=== PATIENT | male | born 2000 | race Two or more races ===

== ENCOUNTER 2022-08-04 03:57 | Emergency (ER) | payer OTHER, MEDICAID, SELFPAY ==
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
[2022-08-04 04:06] VITALS: BP 144/71; PULSE 80; RESP 18; TEMP 36.6; O2SAT 95; BMI 31.2
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
== END 2022-08-04 06:15 | disposition home or self-care (01) ==
PROVIDERS: Emergency Provider Internal Medicine
DX: S00.83XA Contusion of other part of head, initial encounter (principal); R51.9 Headache, unspecified; X58.XXXA Exposure to other specified factors, initial encounter; Y93.9 Activity, unspecified; Y92.9 Unspecified place or not applicable; Y99.9 Unspecified external cause status
CPT/HCPCS: 70486; 99283; 99284

== ENCOUNTER 2023-12-10 13:07 | Emergency (ER) | payer OTHER, SELFPAY ==
--- NOTE | ~2023-12-10 | US_ITS ---
EXAMINATION: US ABDOMEN LIMITED CLINICAL INFORMATION: Periumbilical pain. COMPARISON: None available. TECHNIQUE: Limited imaging of the periumbilical region. FINDINGS: Targeted sonography of the periumbilical region was performed. There is no evidence of focal protrusion of intra-abdominal contents to suggest hernia. There is no focal fluid collection or other sonographic abnormality. US/US abdomen limited IMPRESSION: Unremarkable examination. The decision to follow the area of concern should be based on the clinical assessment. If clinically indicated further cross-sectional imaging could be performed. Electronically signed by: George Lockhart MD 12/10/2023 03:39 PM EDT
--- NOTE | ~2023-12-10 | CT_ITS ---
EXAMINATION: CT ABDOMEN AND PELVIS WITH CONTRAST CLINICAL INFORMATION: Periumbilical pain and discharge COMPARISON: None available. TECHNIQUE: Multidetector volumetric images were obtained from the superior aspect of the liver through the pubic symphysis following administration 85 mL of Omnipaque 350 intravenous contrast. Sagittal and coronal reformatted images were obtained on the technologist's workstation. Oral contrast: No This CT examination was performed using dose optimization techniques as appropriate, variously including the following: *Automated exposure control *Adjustment of mA and/or kV according to patient size (this includes techniques or standardized protocols for targeted exams where dose is matched to indication/reason for exam; i.e. extremities or head) *Use of iterative reconstruction technique DLP: 459 mGy-cm FINDINGS: LUNG BASES: The visualized lung bases are unremarkable. LIVER, GALLBLADDER, AND BILIARY TREE: The liver is normal in size, shape, and attenuation. No focal hepatic lesion or biliary ductal dilatation is present. The gallbladder is unremarkable with no evidence of radiopaque gallstones, gallbladder wall thickening, or obvious pericholecystic inflammatory changes. PANCREAS: Unremarkable. SPLEEN: Unremarkable. ADRENAL GLANDS: Unremarkable. KIDNEYS AND URETERS: The kidneys are normal in size, shape, and attenuation. No hydronephrosis, hydroureter, or calculi seen. No perinephric stranding. BLADDER: Unremarkable. GASTROINTESTINAL TRACT: The small and large bowel are unremarkable. The appendix is unremarkable. ABDOMINAL WALL: Soft tissue stranding the umbilicus. No discrete fluid collections. LYMPH NODES: Normal. VASCULAR: Unremarkable. PELVIC VISCERA: Unremarkable. OSSEOUS STRUCTURES: Unremarkable. CT/CT abdomen pelvis w IV con IMPRESSION: Soft tissue stranding at the umbilicus. No discrete fluid collections. Fleischner guidelines were followed. Electronically signed by: Maday Kang MD 12/10/2023 07:05 PM EDT
[2023-12-10 13:17] VITALS: BP 126/70; PULSE 80; RESP 18; TEMP 37; O2SAT 98; BMI 30.5
--- NOTE | 2023-12-10 13:21 | ED.ABDPAIN ---
HPI - Abdominal Pain General Chief Complaint: Abdominal Pain Stated Complaint: belly button hernia leaking fluid Time Seen by Provider: 12/10/23 16:20 Source: patient Limitations: no limitations History of Present Illness ED Provider: Perla Garnica PA-C HPI narrative: 23-year-old male presents with a umbilical discharge x2 days. Associated discomfort. Denied swelling of periumbilical region, nausea, vomiting, abdominal distention, constipation or inability to pass flatus. No fevers. No trauma to the area. Related Data Previous Rx's ?Medication ?Instructions ?Recorded cephalexin 500 mg capsule 500 mg PO QID #28 caps 12/10/23 Allergies Allergy/AdvReac Type Severity Reaction Status Date / Time No Known Allergies Allergy Verified 12/10/23 13:20 Review of Systems Review of Systems Yes all other systems are reviewed and are negative Constitutional: Denies fatigue and Denies fever(s) Gastrointestinal: Reports abdominal pain, Denies bloating, Denies constipation, Denies diarrhea, Denies nausea and Denies vomiting Endocrine: Denies fatigue PMFSH Past Medical History Attestation statement: The following information was validated with the patient. Social History Social History Alcohol intake: current Alcohol intake frequency: holidays/special occasions only Alcohol type: hard liquor Substance Use Type: Marijuana Advance Directives: No Advance Directives Information Provided: Yes Do you have a plan to hurt others: No Plan Physical Exam ED Vital Signs: Vital Signs - 24 hr 12/10/23 13:17 12/10/23 16:34 12/10/23 19:02 Temperature 98.6 F 98.6 F 98.0 F Pulse Rate 80 57 57 Respiratory Rate 18 22 H 16 Blood Pressure 126/70 117/65 134/72 Pulse Oximetry 98 99 98 Oxygen Delivery Method Room Air Room Air Room Air BMI result Body Mass Index 30.5 Const Other: Alert, overall well-appearing Orientation/consciousness: patient oriented x3 Resp Other: Nonlabored respirations Cardio Other: Normal peripheral perfusion GI Other: Abdomen is soft, nondistended, nontender, no evidence of umbilical hernia on exam, no overlying skin changes, some debris/discharge noted from the umbilicus, the interior folds appear slightly erythematous, Skin Other: Warm dry no rash Neuro General: patient oriented x3, no focal motor deficits and CN's II-XI intact bilaterally Psych Other: Calm cooperative Course Course Course Narrative: This is a Rapid Medical Examination (RME) performed by Raquel Leiva PA-C in triage. Full HPI, ROS, assessment and treatment plan per primary provider in the Main ED. 23 yo male here for eval of ?umbilical hernia. Was seen for this at urgent care last night. They were not able to reduce it but said it was soft. Sent home with strict return precautions. States he woke up this morning in the area was draining pus . Endorses pain with pushing on the area. + no visible hernia on exam. When I palpate the umbilicus, I feel a mass. There is purulent drainage from the umbilicus. Plan: Basic labs, abd ultrasound to assess hernia versus abscess, +will defer further imaging to primary ED provider. Medical Decision Making Medical Decision Making [facility] Narrative: 23-year-old male presents with a umbilical discharge x2 days. Associated discomfort. Denied swelling of periumbilical region, nausea, vomiting, abdominal distention, constipation or inability to pass flatus. No fevers. No trauma to the area. No relevant chronic issues History: Per patient I have considered the following differential diagnoses: Bowel obstruction, strangulated/incarcerated hernia, fungal infection, cellulitis, purulent cellulitis Plan: Patient here with a very unremarkable exam, there was no evidence of bowel obstruction per my exam, and he has no obstructive symptoms. Screening labs were obtained including a limited abdominal ultrasound, everything thus far unremarkable. He likely has some sort of dermatitis, to err on the side of caution obtaining a CT scan I have independently reviewed the following tests: Labs: No leukocytosis, not anemic, no electrolyte abnormality Limited abdominal ultrasound: US/US abdomen limited IMPRESSION: Unremarkable examination. The decision to follow the area of concern should be based on the clinical assessment. If clinically indicated further cross-sectional imaging could be performed. Electronically signed by: George Lockhart MD 12/10/2023 03:[address] abdomen and pelvis: CT/CT abdomen pelvis w IV con IMPRESSION: Soft tissue stranding at the umbilicus. No discrete fluid collections. Fleischner guidelines were followed. Electronically signed by: Maday Kang MD 12/10/2023 07:05 PM EDT RP Sounds as if the patient is developing early cellulitis, given the region of inflammation, he could have overlying fungal infection that broke the skin, we will treat with Keflex and he can use topical antifungal you can follow up with primary care as needed Lab Data 12/10/23 13:27 12/10/23 13:27 Labs: Lab Results 12/10/23 Range/Units 13:27 WBC 5.1 (4.8-10.8) X10*3/uL RBC 4.66 (4.60-5.80) X10*6/uL Hgb 13.9 L (14.0-18.0) g/dl Hct 41.0 L (42.0-52.0) % MCV 88.0 (80.0-98.0) fL MCH 29.8 (27.0-33.0) pg MCHC 33.9 (31.0-36.0) g/dl RDW 12.5 (11.0-16.0) % Plt Count 212 (160-400) X10*3/uL MPV 10.3 (9.4-12.4) fL Immature Gran % (Auto) 0.2 (0.0-0.4) % Neut % (Auto) 53.9 (45-73) % Lymph % (Auto) 34.2 (20-40) % Camp % (Auto) 7.1 (2-11) % Eos % (Auto) 4.0 (0-4) % Baso % (Auto) 0.6 (0-2) % Lymph # (Auto) 1.7 (1.2-4.9) X10*3/uL Camp # (Auto) 0.4 (0.1-1.2) X10*3/uL Eos # (Auto) 0.2 (0.0-0.4) X10*3/uL Baso # (Auto) 0.0 (0.0-0.2) X10*3/uL Abs Immat Gran (auto) 0.01 (0.00-0.03) X10*3/uL Absolute Neuts (auto) 2.7 (2.0-8.3) x10*3/uL Absolute Nucleated RBC 0.000 (0.0-0.012) X10*3/uL Nucleated RBC % (auto) 0.0 (0.0-0.2) /100WBC Sodium 142 (135-145) mmol/L Potassium 4.1 (3.3-5.1) mmol/L Chloride 107 (96-108) mmol/L Carbon Dioxide 26 (22-29) mmol/L Anion Gap 13 (12-20) BUN 18 H (9-16) mg/dL Creatinine 1.12 (0.5-1.4) mg/dL Estim Creat Clear Calc 110.7 Estimated GFR > 60 Random Glucose 121 H (60-115) mg/dL Calcium 9.3 (8.4-10.2) mg/dL Magnesium 2.1 (1.6-2.6) mg/dL Total Bilirubin 0.2 (0.0-1.0) mg/dL AST 27 (5-37) U/L ALT 32 (0-40) U/L Alkaline Phosphatase 65 (39-117) U/L Total Protein 7.2 (6.5-8.0) g/dL Albumin 4.6 (3.5-5.0) g/dL Lipase 67 (8-78) U/L Medications Administered Discontinued Medications Generic Name Dose Route Start Last Admin Trade Name Freq PRN Reason Stop Dose Admin Iohexol 100 ml 12/10/23 18:26 12/10/23 18:27 Iohexol 350 Mg/Ml 100 Ml Infus..Btl IV 12/10/23 18:27 85 ml ONCE ONE Administration Discharge Plan Discharge Clinical Impression: Cellulitis Patient Disposition: Home, Self-Care Instructions: Cellulitis (ED) Additional Instructions: The CT scan revealed that you have inflammation within the belly button, likely secondary to an overlying fungal infection. Use the Keflex as directed. Use the topical antifungal cream, per package instructions. Follow up with your primary care provider as needed. To note, there was no evidence of a hernia Prescriptions: New cephalexin 500 mg capsule 500 mg PO QID Qty: 28 0RF Print Language: Ukrainian
[2023-12-10 13:31] LABS: MANUAL DIFF FLAG NO
[2023-12-10 13:35] LABS: Basophils Percent Auto 0.6 % (0-2); Eosinophils Absolute Auto 0.2 X10*3/uL (0.0-0.4); Hemoglobin 13.9 g/dl (14.0-18.0); Imm Gran Abs Auto 0.01 X10*3/uL (0.00-0.03); Imm Gran Pct Auto 0.2 % (0.0-0.4); Lymphocytes Absolute Auto 1.7 X10*3/uL (1.2-4.9); Lymphocytes Percent Auto 34.2 % (20-40); Mean Corpuscular HGB Conc 33.9 g/dl (31.0-36.0); Mean Corpuscular Hemoglobin 29.8 pg (27.0-33.0); Mean Platelet Volume 10.3 fL (9.4-12.4); Monocytes Absolute Auto 0.4 X10*3/uL (0.1-1.2); Monocytes Percent Auto 7.1 % (2-11); Neutrophils Absolute Auto 2.7 x10*3/uL (2.0-8.3); Neutrophils Percent Auto 53.9 % (45-73); Platelet Count 212 X10*3/uL (160-400); Red Blood Count 4.66 X10*6/uL (4.60-5.80); Red Cell Distribution Width 12.5 % (11.0-16.0); White Blood Count 5.1 X10*3/uL (4.8-10.8)
[2023-12-10 14:01] LABS: Alanine Aminotransferase 32 U/L (0-40); Albumin Level 4.6 g/dL (3.5-5.0); Alkaline Phosphatase 65 U/L (39-117); Anion Gap 13 (12-20); Aspartate Amino Transferase 27 U/L (5-37); Bilirubin Total 0.2 mg/dL (0.0-1.0); Blood Urea Nitrogen 18 mg/dL (9-16); Calcium 9.3 mg/dL (8.4-10.2); Carbon Dioxide 26 mmol/L (22-29); Chloride 107 mmol/L (96-108); Creatinine Clr Calc Pharmacy 110.7; Estimated Glomerular Filt Rate > 60; Glucose Random 121 mg/dL (60-115); Lipase 67 U/L (8-78); Magnesium 2.1 mg/dL (1.6-2.6); Potassium 4.1 mmol/L (3.3-5.1); Sodium 142 mmol/L (135-145); Total Protein 7.2 g/dL (6.5-8.0)
[2023-12-10 16:34] VITALS: BP 117/65; PULSE 57; RESP 22; TEMP 37; O2SAT 99
[2023-12-10] MEDS: iohexoL 350 MG/ML 100 ML INFUS..BTL IV (18:27)
[2023-12-10 19:02] VITALS: BP 134/72; PULSE 57; RESP 16; TEMP 36.7; O2SAT 98
[2023-12-10 19:34] VITALS: BP 134/72; PULSE 57; RESP 16; TEMP 36.7; O2SAT 98
[2023-12-10] MEDS: cephALEXin 500 MG CAPSULE PO (19:34)
== END 2023-12-10 19:35 | disposition home or self-care (01) ==
PROVIDERS: Physician Assistant Medical; Emergency Provider Emergency Medicine
DX: L03.316 Cellulitis of umbilicus (principal); R10.33 Periumbilical pain; R10.2 Pelvic and perineal pain; Z79.899 Other long term (current) drug therapy
CPT/HCPCS: 36415; 74177; 76705; 80053; 83690; 83735; 85025; 99283; 99284; Q9967

== ENCOUNTER 2024-10-18 10:33 | Emergency (ER) | payer OTHER, SELFPAY ==
--- NOTE | ~2024-10-18 | CT_ITS ---
EXAMINATION: CT ABDOMEN PELVIS WITHOUT IV CONTRAST HISTORY: flank pain, concern for stone COMPARISON: Comparison is made with the prior examination dated 12/10/2023. TECHNIQUE: CT scan of the abdomen and pelvis was performed without contrast using standard departmental protocol. Coronal and sagittal reformatted images were generated and reviewed. Oral contrast material was not administered per department protocol. This CT exam was performed with one or more of the following dose reduction techniques: automated exposure control, adjustment of the mA and/or kV according to patient size, use of iterative reconstruction technique. DLP: 471 mGy-cm FINDINGS: LOWER CHEST: The visualized lung bases are clear. There is no pleural effusion. CARDIOVASCULATURE: The heart is normal in size. There is no pericardial effusion. LIVER: The liver is normal in size and contour. The liver has an unremarkable unenhanced appearance. GALLBLADDER / BILE DUCTS: The gallbladder is unremarkable. There is no intra or extrahepatic biliary ductal dilatation. SPLEEN: The spleen is normal in size and has an unremarkable unenhanced appearance. PANCREAS: The pancreas has an unremarkable unenhanced appearance. ADRENAL GLANDS: Unremarkable. 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 No renal or ureteral calculi are identified. There is no hydronephrosis or hydroureter. LYMPH NODES: No retroperitoneal lymphadenopathy is identified in the abdomen or pelvis. VASCULATURE: The abdominal aorta is normal in caliber. MESENTERY/PERITONEUM: No free fluid. No masses. There is no free intraperitoneal gas. STOMACH: The stomach is collapsed, limiting evaluation. SMALL BOWEL: The small bowel is normal in caliber. COLON: There is a moderate to large amount of stool throughout the colon. APPENDIX: Normal. URINARY BLADDER/PELVIC ORGANS: The urinary bladder is unremarkable. The prostate is normal in size. BONES / SOFT TISSUES: No suspicious bony or soft tissue abnormalities. CT/CT abdomen pelvis wo IV con IMPRESSION: 1. No evidence of nephrolithiasis or ureteral obstruction. 2. Moderate to large amount of stool throughout the colon. Electronically signed by: Denny Mathur MD 10/18/2024 02:59 PM EDT
[2024-10-18 10:52] VITALS: BP 128/81; PULSE 57; RESP 18; TEMP 36.6; O2SAT 100; BMI 25.8
--- NOTE | 2024-10-18 10:55 | ED_ITS ---
HPI - General Adult General Chief complaint: Back Pain/Injury Stated complaint: ref by UC, flank pain Time Seen by Provider: 10/18/24 12:46 Source: patient Mode of arrival: ambulatory Limitations: no limitations History of Present Illness ED Provider: Xin Sanchez PA-C HPI narrative: Patient is a 24 year old assigned male at with no significant medical history presenting to the emergency department with bilateral back pain and urinary symptoms. Patient states that the back pain has been ongoing for 2 weeks and progressively worsening. Patient reports that they were evaluated by urgent care this morning and referred to the emergency department to rule out a kidney infection. They report episodes of cold sweats, nausea, increased urinary frequency, and feelings of incomplete urinary emptying. Patient reports the pain has become bothersome and interfered with their sleep this week. Patient states that they have felt constipated over the past week. Patient reports taking Azo at home with mild relief of urinary symptoms. Patient denies any fevers, blood in their urine, pain with urination, diarrhea, blood in their stool, or any other symptoms at this time. Onset (ago): week(s) (2 weeks) Related Data Previous Rx's ?Medication ?Instructions ?Recorded cephalexin 500 mg capsule 500 mg PO QID #28 caps 12/09 Allergies Allergy/AdvReac Type Severity Reaction Status Date / Time No Known Allergies Allergy Verified 10/18/24 10:55 Review of Systems 2 Constitutional: Constitutional: Reports as per HPI Eyes: Eyes: Reports as per HPI ENT: Reports as per HPI Cardiovascular: Cardiovascular: Reports as per HPI Respiratory: Respiratory: Reports as per HPI Gastrointestinal: Gastrointestinal: Reports as per HPI Genitourinary: Genitourinary: Reports as per HPI Musculoskeletal: Musculoskeletal: Reports as per HPI Integumentary/Breasts: Skin/Breast: Reports as per HPI Neurologic: Reports as per HPI Psychiatric: Psychiatric: Reports as per HPI Endocrine: Endocrine: Reports as per HPI Hematologic/Lymphatic: Hematologic/Lymphatic: Reports as per HPI Allergic/Immunologic: Allergic/Immunologic: Reports as per HPI PMF Past Medical History Attestation statement: The following information was validated with the patient. Source: old records reviewed and nursing notes reviewed Social History Social History Alcohol intake: current Alcohol intake frequency: holidays/special occasions only Alcohol type: hard liquor Smoked in Last 30 Days: No Substance Use Type: Marijuana Advance Directives: No Advance Directives Information Provided: Yes Do you have a plan to hurt others: No Plan Physical Exam ED Vital Signs: Vital Signs - 24 hr 10/18/24 10:52 10/18/24 13:08 10/18/24 14:00 Temperature 97.9 F Pulse Rate 57 55 49 L Respiratory Rate 18 16 18 Blood Pressure 128/81 118/70 116/72 Pulse Oximetry 100 100 99 Oxygen Delivery Method Room Air Room Air Room Air 10/18/24 15:58 Temperature 98.4 F Pulse Rate 56 Respiratory Rate 16 Blood Pressure 110/64 Pulse Oximetry 99 Oxygen Delivery Method Room Air BMI result Body Mass Index 25.8 Const General: cooperative, no acute distress, alert and awake Nutritional Appearance: well nourished Orientation/consciousness: patient oriented x3 HENMT Head: Yes normal to inspection and Yes atraumatic Ears: hearing grossly normal bilaterally and external ears normal General nose exam: Normal external nose present, no nasal discharge noted and no epistaxis Face and sinus: Yes normal facial exam, No abrasion and No laceration Mouth: Normal oral and palatal mucosa present, no drooling and no muffled voice Eyes General: appearance normal, both eyes and all related structures Periorbital: periorbital findings normal Eyelids: Yes eyelids normal Conjunctivae: conjunctivae normal Pupils: Equal, round and reactive pupils present EOM: EOMs intact bilaterally Neck Neck: Yes normal visual inspection and Yes full ROM Resp Effort & Inspection: normal respiratory effort and able to speak in complete sentences Cardio Rate: regular rate Rhythm: regular rhythm GI Inspection: Yes normal to inspection and No distended Palpation (GI): Soft to palpation and Tenderness to palpation present (GI) (mildly tender to LLQ) Percussion: Yes normal to percussion Auscultation: normal bowel sounds General: Yes CVA tenderness (left) Back/Spine/Pelvis Back: CVA tenderness (left) Neuro General: patient oriented x3, moves all extremities and CN's II-XI intact bilaterally Cranial nerves: Yes Equal, round and reactive pupils present Cognition (Neuro): normal cognition Extrem General: Yes normal to inspection, Yes full ROM and Yes capillary refill normal Psych Appearance: grossly normal Mental Status: mental status grossly normal Affect: normal affect Attitude: cooperative Thought process: Normal thought process present Thought content: Normal thought content present Insight: Good insight present (Psych) Course Course Course Narrative: This is a Rapid Medical Examination (RME) performed by Raquel Leiva PA-C in triage. Full HPI, ROS, assessment and treatment plan per primary provider in the Main ED. Hx: 24 yo M here from for eval of b/l flank pain, an episode of chills, and difficulty urinating x2 weeks. noted to have CVAT at with infected urine, sent here for pyelo r/o. no documented fevers. PE/vitals: +CVAT bilaterally Plan: screening labs, UA - will defer imaging to primary provider. Medications Administered Discontinued Medications Generic Name Dose Route Start Last Admin Trade Name Freq PRN Reason Stop Dose Admin Sodium Chloride 1,000 mls @ 999 mls/hr 10/18/24 13:30 10/18/24 15:02 Ns IV 10/18/24 14:30 Infused .Q1H1M L[facility]YD Infusion Ketorolac Tromethamine 15 mg 10/18/24 13:26 10/18/24 13:34 Ketorolac Tromethamine 15 Mg/Ml Vial IVPUSH 10/18/24 13:27 15 mg ONCE ONE Administration Medical Decision Making Medical Decision Making [facility] Narrative: Patient is a 24 year old assigned male at with no significant medical history presenting to the emergency department with bilateral back pain and urinary symptoms. Patient's physical exam was unremarkable. Patient's blood work was unremarkable. Patient's urine showed no acute process. Patient's CT abd/pelvis showed a significant amount of stool. Patient's clinical presentation is most consistent with intermittent urinary issues secondary to constipation. I explained my physical exam findings as well as all test results to the patient. I answered all questions asked by the patient. I stressed the importance of the patient taking his medication as directed (either prescribed or as the over the counter packaging recommends). I stressed the importance of the patient following up with his primary care provider. I stressed the importance of the patient returning to the emergency department immediately if his symptoms were to worsen or if he were to develop any dizziness, shortness of breath, difficulty breathing, chest pain, blurry vision, loss of vision, nausea, vomiting, abdominal pain, fever, chills, back pain, or any other complaints. Patient verbalized agreement and understanding with this treatment plan and discharge. Differential Diagnosis Differential Diagnoses: The differential diagnosis associated with the presentation includes Constipation Abdominal pain Urinary issues UTI Admission/Observation Consideration of admission/observation: Escalation of care including admission/observation considered Patient would have been admitted to the hospital had his work up had any findings where hospital admission was appropriate and his clinical presentation warranted hospital admission. Lab Data [facility] Lab Attestation statement: I reviewed the patient's lab results. My interpretation of these results are in the [facility] Rationale portion of this note. 10/18/24 11:01 10/18/24 11:01 Labs: Lab Results 10/18/24 10/18/24 Range/Units 11: 13:10 WBC 5.2 (4.8-10.8) X10*3/uL RBC 4.84 (4.60-5.80) X10*6/uL Hgb 14.6 (14.0-18.0) g/dl Hct 41.7 L (42.0-52.0) % MCV 86.2 (80.0-98.0) fL MCH 30.2 (27.0-33.0) pg MCHC 35.0 (31.0-36.0) g/dl RDW 12.5 (11.0-16.0) % Plt Count 198 (160-400) X10*3/uL MPV 10.3 (9.4-12.4) fL Immature Gran % (Auto) 0.2 (0.0-0.4) % Neut % (Auto) 42.2 L (45-73) % Lymph % (Auto) 39.0 (20-40) % Pope % (Auto) 8.8 (2-11) % Eos % (Auto) 9.2 H (0-4) % Baso % (Auto) 0.6 (0-2) % Lymph # (Auto) 2.0 (1.2-4.9) X10*3/uL Pope # (Auto) 0.5 (0.1-1.2) X10*3/uL Eos # (Auto) 0.5 H (0.0-0.4) X10*3/uL Baso # (Auto) 0.0 (0.0-0.2) X10*3/uL Abs Immat Gran (auto) 0.01 (0.00-0.03) X10*3/uL Absolute Neuts (auto) 2.2 (2.0-8.3) x10*3/uL Absolute Nucleated RBC 0.000 (0.0-0.012) X10*3/uL Nucleated RBC % (auto) 0.0 (0.0-0.2) /100WBC Sodium 140 (135-145) mmol/L Potassium 3.9 (3.3-5.1) mmol/L Chloride 105 (96-108) mmol/L Carbon Dioxide 26 (22-29) mmol/L Anion Gap 13 (12-20) BUN 13 (9-16) mg/dL Creatinine 1.04 (0.5-1.4) mg/dL Estim Creat Clear Calc 111.4 Estimated GFR > 60 Random Glucose 101 (60-115) mg/dL Calcium 9.3 (8.4-10.2) mg/dL Magnesium 2.1 (1.6-2.6) mg/dL Total Bilirubin 0.5 (0.0-1.0) mg/dL AST 27 (5-37) U/L ALT 28 (0-40) U/L Alkaline Phosphatase 57 (39-117) U/L Total Protein 7.1 (6.5-8.0) g/dL Albumin 4.8 (3.5-5.0) g/dL Urine Color Dark Yellow Urine Appearance Clear Urine pH 6.5 (5.0-9.0) Ur Specific [place] <= 1.005 (1.005-1.025) Urine Protein Negative (Neg-Trace) mg/dL Urine Glucose (UA) Negative (Negative) mg/dL Urine Ketones Negative (Negative) mg/dL Urine Blood Negative (Negative) Urine Nitrite Positive H (Negative) Ur Leukocyte Esterase Negative (Negative) Urine RBC 0-2 (0-2) /HPF Urine WBC 0-5 (0-5) /HPF Ur Squamous Epith Cells 0-2 (0-2) /HPF Urine Bacteria None Seen (None Seen) Hyaline Casts 0-2 (0-2) /LPF Independent Interpretation I performed an independent interpretation of an: CT Scan Interpretation: My interpretation is in agreement with the radiologist's impression of this imaging study. L Report Number: [id number]: Total DLP = 471.00 mGy-cm Reason for Exam: flank pain, concern for stone EXAMINATION: CT ABDOMEN PELVIS WITHOUT IV CONTRAST HISTORY: flank pain, concern for stone COMPARISON: Comparison is made with the prior examination dated 12/10/2023. TECHNIQUE: CT scan of the abdomen and pelvis was performed without contrast using standard departmental protocol. Coronal and sagittal reformatted images were generated and reviewed. Oral contrast material was not administered per department protocol. This CT exam was performed with one or more of the following dose reduction techniques: automated exposure control, adjustment of the mA and/or kV according to patient size, use of iterative reconstruction technique. DLP: 471 mGy-cm FINDINGS: LOWER CHEST: The visualized lung bases are clear. There is no pleural effusion. CARDIOVASCULATURE: The heart is normal in size. There is no pericardial effusion. LIVER: The liver is normal in size and contour. The liver has an unremarkable unenhanced appearance. GALLBLADDER / BILE DUCTS: The gallbladder is unremarkable. There is no intra or extrahepatic biliary ductal dilatation. SPLEEN: The spleen is normal in size and has an unremarkable unenhanced appearance. PANCREAS: The pancreas has an unremarkable unenhanced appearance. ADRENAL GLANDS: Unremarkable. 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 No renal or ureteral calculi are identified. There is no hydronephrosis or hydroureter. LYMPH NODES: No retroperitoneal lymphadenopathy is identified in the abdomen or pelvis. VASCULATURE: The abdominal aorta is normal in caliber. MESENTERY/PERITONEUM: No free fluid. No masses. There is no free intraperitoneal gas. STOMACH: The stomach is collapsed, limiting evaluation. SMALL BOWEL: The small bowel is normal in caliber. COLON: There is a moderate to large amount of stool throughout the colon. APPENDIX: Normal. URINARY BLADDER/PELVIC ORGANS: The urinary bladder is unremarkable. The prostate is normal in size. BONES / SOFT TISSUES: No suspicious bony or soft tissue abnormalities. CT/CT abdomen pelvis wo IV con IMPRESSION: 1. No evidence of nephrolithiasis or ureteral obstruction. 2. Moderate to large amount of stool throughout the colon. Electronically signed by: Denny Mathur MD 10/18/2024 02:59 PM EDT Dictated By: Denny Mathur MD Signed By: Electronically signed by Denny Mathur MD 10/18/24 9985 Radiology Impression Discussion of test interpretation with radiology: I have reviewed the radiologist's reading. Discharge Plan Discharge Clinical Impression: Back pain, Constipation Patient Disposition: Home, Self-Care Instructions: Constipation (DC), Back Pain (ED) Additional Instructions: Your work up today showed a significant level of stool in your colon / constipation. Your urine is normal. Your lab work is fine. Please consider over the counter magnesium citrate or sugar free gummy bears for your constipation. IF you are prescribed home medications and/or you are taking over the counter medications at home - it is very important you continue to do so as prescribed / directed unless told otherwise. Follow up with a primary care provider. Return to the emergency department immediately if your symptoms worsen or if you develop any numbness, tingling, dizziness, shortness of breath, difficulty breathing, chest pain, blurry vision, loss of vision, nausea, vomiting, abdominal pain, fever, chills, back pain, or any other complaints. L If you do not have a primary care provider - call any of the below numbers to establish and follow up with a primary care provider. [facility] Primary Care ([place]) [phone] [place] [address], [address] [facility] Primary Care ([facility]) [phone] [place] [address], [address] [facility], [address] [facility] Primary Care ([address] [place]) [phone] [place] [address], [address] [facility], [address] [facility] Primary Care ([place]) [phone] [place] [address], [address] [facility], [address] [facility] Family Medicine [phone] [address] [facility], [address] Please see the information below about our Patient Portal. If you are not yet enrolled in the [facility] Patient Portal, you will receive an enrollment email invitation following your visit to any [facility] care setting. You may also self-enroll in the Patient Portal by visiting our website: [email or web address] The following information is required to access the Patient Portal: - Your [facility] Medical Record Number - Your personal home email address (must match what is in your electronic medical record, Registration staff can assist with this) - Name - Date of Capabilities of the Patient Portal: - Message some providers - View upcoming appointments - Access your health summary, medical history, and visit history - View current conditions and allergies - View procedure and lab results - View your medications, including guidelines, side effects, and precautions - Complete pre-appointment questionnaires requested by your provider - Ready summary reports of your office visits and procedures To access the Patient Portal Mobile Beth, follow these directions: - Search [employer]ia in the Beth Store or Ciafo Store - Download the Beth - Search for [facility] - Enter your login/password Prescriptions: No Action cephalexin 500 mg capsule 500 mg PO QID Qty: 28 0RF Interventions: ED Discharge Assessment Last Done: 10/18/24 15:58 Discharge Date/Time: 10/18/24 16:00 Print Language: Venezuelan
[2024-10-18 11:05] LABS: MANUAL DIFF FLAG NO
[2024-10-18 11:11] LABS: Hematocrit 41.7 % (42.0-52.0); Hemoglobin 14.6 g/dl (14.0-18.0); Imm Gran Abs Auto 0.01 X10*3/uL (0.00-0.03); Imm Gran Pct Auto 0.2 % (0.0-0.4); Lymphocytes Absolute Auto 2.0 X10*3/uL (1.2-4.9); Mean Corpuscular HGB Conc 35.0 g/dl (31.0-36.0); Mean Corpuscular Hemoglobin 30.2 pg (27.0-33.0); Mean Corpuscular Volume 86.2 fL (80.0-98.0); NRBC Abs Auto 0.000 X10*3/uL (0.0-0.012); NRBC Pct Auto 0.0 /100WBC (0.0-0.2); Platelet Count 198 X10*3/uL (160-400); Red Blood Count 4.84 X10*6/uL (4.60-5.80); White Blood Count 5.2 X10*3/uL (4.8-10.8)
[2024-10-18 11:35] LABS: Alanine Aminotransferase 28 U/L (0-40); Albumin Level 4.8 g/dL (3.5-5.0); Alkaline Phosphatase 57 U/L (39-117); Anion Gap 13 (12-20); Aspartate Amino Transferase 27 U/L (5-37); Blood Urea Nitrogen 13 mg/dL (9-16); Calcium 9.3 mg/dL (8.4-10.2); Carbon Dioxide 26 mmol/L (22-29); Chloride 105 mmol/L (96-108); Creatinine Clr Calc Pharmacy 111.4; Estimated Glomerular Filt Rate > 60; Magnesium 2.1 mg/dL (1.6-2.6); Potassium 3.9 mmol/L (3.3-5.1); Sodium 140 mmol/L (135-145); Total Protein 7.1 g/dL (6.5-8.0)
[2024-10-18 13:08] VITALS: BP 118/70; PULSE 55; RESP 16; O2SAT 100
[2024-10-18 13:16] LABS: Appearance Urine Clear; Glucose Urine UA Negative (Negative); PH 6.5 (5.0-9.0); Specific Gravity - Urine <= 1.005 (1.005-1.025); UMIC TRIGGER UACC YES
[2024-10-18 13:24] LABS: UACC Culture Trigger YES
[2024-10-18 14:00] VITALS: BP 116/72; PULSE 49; RESP 18; O2SAT 99
--- OUTSIDE RECORDS SUMMARY | 2024-10-18 14:07 | XMS_ITS | Encounter Summary ---
Author Organization [facility] Address [address] [place] [address] Care Team Providers Care Stock Patcher Name Role Phone Sherry Kaba MD Primary Care Provider [phone] Al Dominguez MD Unavailable [phone] Austin Lux MD Primary Care Provider Encounter Details Date Type Department Care Team Description 03/10/2021 Panel Machine Tender Report Medical Records [address] [place] [id number] Kashif Ko Social History Tobacco Use Types Packs/Day Years Used Date Smoking Tobacco: Former Vapor Smokeless Tobacco: Never Comments:on an off, stopped in 2019 Alcohol Use Standard Drinks/Week Comments Yes 0 (1 standard drink = 0.6 oz pur e alcohol) experimented once Alcohol Habits Answer Date Recorded How often do you have a drink containing alcohol ? Monthly or less 01/10/2020 How many drinks containing a lcohol do you have on a typical day when you are drinking? Not asked How often do you have six or more drinks on one occasion? Not asked Sex Assigned at Date Recorded Not on file documented as of this encounter Plan of Treatment Not on file documented as of this encounter Visit Diagnoses Not on filedocumented in this encounter Care Teams Stock Patcher Relationship Specialty Start Date End Date Sherry Kaba MD [address] [place] [id number] PCP - General Pediatrics 01/15/21 03/19/22 Austin Lux MD [address] [place] [address] [id number] PCP - General Internal Medicine 03/20/22 Al Dominguez MD [address] [place] [address] [place] [address] Specialist Cardiovascular Disease 01/20/21 documented as of this encounter
--- OUTSIDE RECORDS SUMMARY | 2024-10-18 14:07 | XMS_ITS | Encounter Summary ---
Author Organization [facility] Address [address] [place] [address] Care Team Providers Care Dynamicist Name Role Phone Bhavna Conroy MD Primary Care Provider Sherry Coppola MD Primary Care Provider [phone] Al Dominguez MD Unavailable [phone] Austin Lux MD Primary Care Provider Reason for Visit * Reason Onset Date Comments TEST RESULTS 01/12/2020 Encounter Details Date Type Department Care Team Description 01/12/2020 Telephone Allergy [place] [address] [place] [id number] Ariadna Gomez PA-C TEST RESULTS Social History Tobacco Use Types Packs/Day Years Used Date Smoking Tobacco: Former Vapor Smokeless Tobacco: Never Comments:on an off, stopped in 2018 Alcohol Use Standard Drinks/Week Comments Yes 0 [...] Assigned at Date Recorded Not on file COVID-19 Exposure Response Date Recorded In the last month, have you been in contact with someone who was confirmed or suspected to have Coronavirus / COVID-19? No / Unsure 01/10/2020 1:35 PM EST documented as of this encounter Miscellaneous Notes * Telephone Encounter - Glory Heath LPN - 01/12/2020 9:59 AM EST Per pharmacy, the Epi pen order was received, and went thru insurance at $0 copay. BSR- Please call mom on Wednesday as per the message below. * Telephone Encounter - Ariadna Goemz PA-C - 01/12/2020 9:30 AM EST I called the patient's mother and reviewed Raphael's blood work. Testing is positive for crustacean and equivocal to mollusks. He has no desire to eat mollusks and they did not want to pursue skin testing for food allergies at this time. Continue strict avoidance of shellfish. His mother says the pharmacy never received the prescription for the EpiPen from May. I sent the prescription again. They do want to consider testing for environmental allergens particularly to animals because he hassymptoms around cats and dogs. Sent Zyrtec to pharmacy. She will discuss this with her son to see if he wants to move forward with skin testing for environmental allergens. Please call the patient's mother back on Wednesday to ensure that they got the prescription for the EpiPen. If they do not want to do environmental skin testing please schedule a routine follow-up in office in May for food and environmental allergies. If they want to do testing please set up environmental skin testing appointment plus AP dog and mail medications to stop. Thank you documented in this encounter Plan of Treatment Not on file documented as of this encounter Visit Diagnoses Not on filedocumented in this encounter Care Teams Dynamicist Relationship Specialty Start Date End Date Bhavna Conroy MD PCP - General 02 01/14/21 Sherry Kaba MD [address] [place] [id number] PCP - General Pediatrics 01/15/21 03/19/22 Austin Lux MD [address] [place] [id number] PCP - General Internal Medicine 03/20/22 Al Dominguez MD [address] [place] [address] [address] [place] [address] Specialist Cardiovascular Disease 01/20/21 documented as of this encounter
--- OUTSIDE RECORDS SUMMARY | 2024-10-18 14:07 | XMS_ITS | Encounter Summary ---
Author Organization [facility] Address [address] [place] [address] Care Team Providers Care Deckhand Engineer Name Role Phone Bhavna Conroy MD Primary Care Provider Deidra Sherry Foster MD Primary Care Provider [phone] Al Dominguez MD Unavailable [phone] Austin Lux MD Primary Care Provider Encounter Details Date Type Department Care Team Description 08/16/2018 Elevator Mechanic Report Medical Records [address] [place] [address] Hever Wahl MD Social History Tobacco Use Types Packs/Day Years Used Date Smoking Tobacco: Never Smokeless Tobacco: Never Alcohol Use Standard Drinks/Week Comments No 0 (1 standard drink = 0.6 oz [...] on filedocumented in this encounter Care Teams Deckhand Engineer Relationship Specialty Start Date End Date Bhavna Conroy MD PCP - General 02 01/14/21 Sherry Kaba MD [address] [place] [id number] PCP - General Pediatrics 01/15/21 03/19/22 Austin Lux MD [address] [place] [address] PCP - General Internal Medicine 03/20/22 Al Dominguez MD [address] [place] [address] [place] [address] Specialist Cardiovascular Disease 01/20/21 documented as of this encounter
--- OUTSIDE RECORDS SUMMARY | 2024-10-18 14:07 | XMS_ITS | Encounter Summary ---
Author Organization [facility] Address [address] [place] [address] Care Team Providers Care Ice Cream Dispenser Name Role Phone Bhavna Conroy MD Primary Care Provider Deidra Sherry Foster MD Primary Care Provider [phone] Al Dominguez MD Unavailable [phone] Austin uLx MD Primary Care Provider Encounter Details Date Type Department Care Team Description 06/26/2020 Filling Hauler Report Medical Records [address] [place] [address] Kashif Ko Social History Tobacco Use Types [...] on filedocumented in this encounter Care Teams Ice Cream Dispenser Relationship Specialty Start Date End Date Bhavna Conroy MD PCP - General 02 01/14/21 Sherry Kaba MD [address] [place] [address] [phone] PCP - General Pediatrics 01/15/21 03/19/22 Austin Lux MD [address] [place] [id number] PCP - General Internal Medicine 03/20/22 Al Dominguez MD [address] [place] [address] [address] [place] [address] Specialist Cardiovascular Disease 01/20/21 documented as of this encounter
--- OUTSIDE RECORDS SUMMARY | 2024-10-18 14:07 | XMS_ITS | Encounter Summary ---
Author Organization [facility] Address [address] [place] [address] Care Team Providers Care Shell Sieve Operator Name Role Phone Bhavna Conroy MD Primary Care Provider Sherry Coppola MD Primary Care Provider [phone] Al Dominguez MD Unavailable [phone] [place] Lux MD Primary Care Provider Reason for Visit * Reason Onset Date Comments dizziness 03/29/2020 Encounter Details Date Type Department Care Team Description 03/29/2020 Telephone Pediatrics - [address] [address] Bhavna Conroy MD dizziness Social History Tobacco Use Types Packs/Day Years [...] have Coronavirus / COVID-19? No / Unsure 03/27/2020 3:12 PM EST documented as of this encounter Miscellaneous Notes * Telephone Encounter - Sebastian Domínguez L.P.N. - 03/29/2020 11:49 AM EST Mom called back has an appt for 4pm today with Twany HIGGINS. * Telephone Encounter - Sebastian Domínguez L.P.N. - 03/29/2020 11:24 AM EST Mom called concerned that Pt still with c/o dizziness. Has not passed out. Reviewed last Telehealthwith Mom apparently Pt did not share the plan with her. Mom will call & schedule an appt with Med Provider& buy him flavored water instead of ice tea as well as make sure Raphael is taking hismeds as ordered. Mom to call prn. PAUL Mom does not need call back * Telephone Encounter - Tiffanie Wise - 03/29/2020 11:10 AM EST Signs/Symptoms: Mom calling stating child is having issues with dizziness which he's concerned about Ask patients who call with respiratory symptoms and/or a fever if they have traveled outside of [place] recently. If yes, do not book. Send to triage Duration of symptoms: Ongoing Temperature: NA Allergies: Shellfish allergy Any chronic illnesses: Patient Active Problem List Diagnosis Code ??? Asthma J45.909 ??? ADHD (attention deficit hyperactivity disorder) F90.9 ??? Sleep disorder G47.9 ??? Sinusitis J32.9 ??? Anxiety disorder F41.9 ??? Astigmatism H52.209 ??? Xddg-qj-sqpa spots L81.3 ??? Pes planus M21.40 ??? Major depressive disorder F32.9 ??? Overweight E66.3 ??? Acute torn meniscus of knee S83.207A ??? Closed dislocation of right elbow S53.104A ??? Food allergy Z91.018 ??? Low back pain M54.5 ??? History of prediabetes Z87.898 Is the child taking any medications: Current Outpatient Medications Medication Sig Dispense Refill ??? Spacer/Aero-Holding Chambers (BREATHERITE RUFINO SPACER ADULT) Misc 1 Device by Does not apply route as needed (use with flovent). 1 Each 0 ??? EPINEPHrine (EPIPEN 2-BASHIR) 0.3 MG/0.3ML Solution Auto-injector Inject 1 Device as directed as needed (anaphylaxis). Use as directed 2 Each 3 ??? quetiapine (SEROQUEL) 50 MG tablet TK 1 T PO D HS ??? ALBUTEROL SULFATE (PROAIR HFA) 108 (90 Base) MCG/ACT Aero Soln Inhale 2 Puffs into the lungs every 4 hours as needed for Cough or Wheezing. 1 Inhaler 5 ??? Melatonin 3 MG Tab Take by mouth. ??? Spacer/Aero-Holding Chambers (BREATHERITE RUFINO SPACER ADULT) Misc 1 Device by Does not apply route as needed (cough, wheeze). 1 Each 0 No current facility-administered medications for this visit. documented in this encounter Plan of Treatment Not on file documented as of this encounter Visit Diagnoses Not on filedocumented in this encounter Care Teams Shell Sieve Operator Relationship Specialty Start Date End Date Bhavna Conroy MD PCP - General 02 01/14/21 Sherry Kaba MD [address] [place] [address] PCP - General Pediatrics 01/15/21 03/19/22 [place] Lux MD [address] [place] [address] PCP - General Internal Medicine 03/20/22 Al Dominguez MD [address] [place] [address] [address] [place] [address] Specialist Cardiovascular Disease 01/20/21 documented as of this encounter
--- OUTSIDE RECORDS SUMMARY | 2024-10-18 14:07 | XMS_ITS | Encounter Summary ---
Author Organization [facility] Address [address] [place] [address] Care Team Providers Care Scrap Drop Crane Operator Name Role Phone Bhavna Conroy MD Primary Care Provider Deidra Sherry Foster MD Primary Care Provider [phone] Al Dominguez MD Unavailable [phone] [place] Lux MD Primary Care Provider Encounter Details Date Type Department Care Team Description 08/14/2018 Hospital Medical Records [address] [place] [address] Abby Godwinleda Social History Tobacco Use Types Packs/Day Years [...] on filedocumented in this encounter Care Teams Scrap Drop Crane Operator Relationship Specialty Start Date End Date Bhavna Conroy MD PCP - General 02 01/14/21 Sherry Kaba MD [address] [place] [address] PCP - General Pediatrics 01/15/21 03/19/22 [place] Lux MD [address] [place] [address] PCP - General Internal Medicine 03/20/22 Al Dominguez MD [address] [place] [address] [address] [place] [address] Specialist Cardiovascular Disease 01/20/21 documented as of this encounter
--- OUTSIDE RECORDS SUMMARY | 2024-10-18 14:07 | XMS_ITS | Encounter Summary ---
Author Organization [facility] Address [address] [place] [address] Care Team Providers Care Chick Grader Name Role Phone Bhavna Conroy MD Primary Care Provider Deidra Sherry Foster MD Primary Care Provider [phone] Al Dominguez MD Unavailable [phone] [place] Lux MD Primary Care Provider Encounter Details Date Type Department Care Team Description 07/24/2020 Buttonholer Report Medical Records [address] [place] [address] Kashif Ko Social History Tobacco Use Types [...] on filedocumented in this encounter Care Teams Chick Grader Relationship Specialty Start Date End Date Bhavna Conroy MD PCP - General 02 01/14/21 Sherry Kaba MD [address] [place] [address] [id number] PCP - General Pediatrics 01/15/21 03/19/22 [place] Lux MD [address] [place] [address] PCP - General Internal Medicine 03/20/22 Al Dominguez MD [address] [place] [address] [address] [place] [address] Specialist Cardiovascular Disease 01/20/21 documented as of this encounter
--- OUTSIDE RECORDS SUMMARY | 2024-10-18 14:07 | XMS_ITS | Encounter Summary ---
Author Organization [facility] Address [address] [place] [address] Care Team Providers Care Amusement Park Entertainer Name Role Phone Bhavna Conroy MD Primary Care Provider Sherry Coppola MD Primary Care Provider [phone] Al Dominguez MD Unavailable [phone] [place] Lux MD Primary Care Provider Reason for Visit * Reason Onset Date Comments Slot Key Person Feedback 12/15/2017 [facility]OS Encounter Details Date Type Department Care Team Description 12/15/2017 Telephone Pediatrics - [address] [address] Bhavna Conroy MD Slot Key Person Feedback (NEOS) Social History Tobacco Use Types Packs/Day Years Used Date Smoking Tobacco: Never Smokeless Tobacco: Never Comments:mom smokes outside Alcohol Use Standard Drinks/Week Comments No 0 [...] on file documented as of this encounter Miscellaneous Notes * Telephone Encounter - Demetra Encarnacion - 12/15/2017 12:10 PM EST Images nsent to orthopacs 12/15/17mmk * Telephone Encounter - Shalini Huertamody - 12/15/2017 12:04 PM EST Please when able push the 12/14/17 MRI to [facility] for an appt with Dr Hadley on 12/28/17. Thank you, Shalini Referrals Coordinator documented in this encounter Plan of Treatment Not on file documented as of this encounter Visit Diagnoses Not on filedocumented in this encounter Care Teams Amusement Park Entertainer Relationship Specialty Start Date End Date Bhavna Conroy MD PCP - General 02 01/14/21 Sherry Kaba MD [address] [place] [address] PCP - General Pediatrics 01/15/21 03/19/22 [place] Lux MD [address] [place] [address] PCP - General Internal Medicine 03/20/22 Al Dominguez MD [address] [place] [address] [place] [address] Specialist Cardiovascular Disease 01/20/21 documented as of this encounter
--- OUTSIDE RECORDS SUMMARY | 2024-10-18 14:07 | XMS_ITS | Encounter Summary ---
Author Organization [facility] Address [address] [place] [address] Care Team Providers Care Edge Burnisher Name Role Phone Bhavna Conroy MD Primary Care Provider Deidra Sherry Foster MD Primary Care Provider [phone] Al Dominguez MD Unavailable [phone] [place] Lux MD Primary Care Provider Encounter Details Date Type Department Care Team Description 12/13/2014 Laboratory Mechanic Helper Report Medical Records [address] [place] [address] Ty Seay MD Social History Tobacco Use Types Packs/Day Years Used Date Smoking Tobacco: Never Smokeless Tobacco: Never Comments:mom stopped smoking Alcohol Use Standard Drinks/Week Comments No 0 (1 standard drink = 0.6 oz pur e alcohol) Alcohol Habits Answer Date Recorded How often [...] on filedocumented in this encounter Care Teams Edge Burnisher Relationship Specialty Start Date End Date Bhavna Conroy MD PCP - General 02 01/14/21 Sherry Kaba MD [address] [place] [address] PCP - General Pediatrics 01/15/21 03/19/22 [place] Lux MD [address] [place] [address] PCP - General Internal Medicine 03/20/22 Al Dominguez MD [address] [place] [address] [address] [place] [address] Specialist Cardiovascular Disease 01/20/21 documented as of this encounter
--- OUTSIDE RECORDS SUMMARY | 2024-10-18 14:07 | XMS_ITS | Encounter Summary ---
Author Organization [facility] Address [address] [place] [address] Care Team Providers Care Jeep Driver Name Role Phone Bhavna Conroy MD Primary Care Provider Sherry Coppola MD Primary Care Provider [phone] lA Dominguez MD Unavailable [phone] [place] Lux MD Primary Care Provider Encounter Details Date Type Department Care Team Description 05/02/2020 Online Media Buyer Report Medical Records [address] [place] [address] Delmer Dean PA-C Social History Tobacco Use Types Packs/Day Years [...] have Coronavirus / COVID-19? No / Unsure 04/24/2020 10:47 AM EDT documented as of this encounter Plan of Treatment Not on file documented as of this encounter Visit Diagnoses Not on filedocumented in this encounter Care Teams Jeep Driver Relationship Specialty Start Date End Date Bhavna Conryo MD PCP - General 02 01/14/21 Sherry Kaba MD [address] [place] [address] PCP - General Pediatrics 01/15/21 03/19/22 [place] Lux MD [address] [place] [address] PCP - General Internal Medicine 03/20/22 Al Dominguez MD [address] [place] [address] [place] [address] Specialist Cardiovascular Disease 01/20/21 documented as of this encounter
--- OUTSIDE RECORDS SUMMARY | 2024-10-18 14:07 | XMS_ITS | Encounter Summary ---
Author Organization [facility] Address [address] [place] [address] Care Team Providers Care Stock Manager Name Role Phone Bhavna Conroy MD Primary Care Provider Sherry Coppola MD Primary Care Provider [phone] Al Dominguez MD Unavailable [phone] [place] Lux MD Primary Care Provider Encounter Details Date Type Department Care Team Description 03/29/2020 Release of Information Medical Records [address] [place] [address] Abstract, Provider Social History Tobacco Use Types Packs/Day Years [...] PM EST documented as of this encounter Plan of Treatment Not on file documented as of this encounter Visit Diagnoses Not on filedocumented in this encounter Care Teams Stock Manager Relationship Specialty Start Date End Date Bhavna Conroy MD PCP - General 02 01/14/21 Sherry Kaba MD [address] [place] [address] PCP - General Pediatrics 01/15/21 03/19/22 [place] Lux MD [address] [place] [address] PCP - General Internal Medicine 03/20/22 Al Dominguez MD [address] [place] [address] Specialist Cardiovascular Disease 01/20/21 documented as of this encounter
--- OUTSIDE RECORDS SUMMARY | 2024-10-18 14:07 | XMS_ITS | Encounter Summary ---
Author Organization [facility] Address [address] [place] [address] Care Team Providers Care Desk Assistant Name Role Phone Bhavna Conroy MD Primary Care Provider Deidra Sherry Foster MD Primary Care Provider [phone] Al Dominguez MD Unavailable [phone] [place] Lux MD Primary Care Provider Encounter Details Date Type Department Care Team Description 08/03/2014 Release of Information Medical Records [address] [place] [address] Abstract, Provider Social History Tobacco Use Types [...] on filedocumented in this encounter Care Teams Desk Assistant Relationship Specialty Start Date End Date Bhavna Conroy MD PCP - General 02 01/14/21 Sherry Kaba MD [address] [place] [address] PCP - General Pediatrics 01/15/21 03/19/22 [place] Lux MD [address] [place] [address] PCP - General Internal Medicine 03/20/22 Al Dominguez MD [address] [place] [address] [place] [address] Specialist Cardiovascular Disease 01/20/21 documented as of this encounter
--- OUTSIDE RECORDS SUMMARY | 2024-10-18 14:07 | XMS_ITS | Encounter Summary ---
Author Organization [facility] Address [address] [place] [address] Care Team Providers Care Automatic Hemmer Name Role Phone Bhavna Conroy MD Primary Care Provider Sherry Coppola MD Primary Care Provider [phone] Al Dominguez MD Unavailable [phone] [place] Lux MD Primary Care Provider Reason for Visit * Reason Onset Date Comments asthma 04/24/2013 Breathing Problems 04/24/2013 Encounter Details Date Type Department Care Team Description 04/24/2013 Telephone Pediatrics - [address] [address] Bhavna Conroy MD asthma; Breathing Problems Social History Tobacco Use Types Packs/Day Years [...] encounter Miscellaneous Notes * Telephone Encounter - Mirian Parker R.N. - 04/24/2013 1:56 PM EDT Mom states child was sent home from school wheezing and difficulty breathing, struggling for breath. Last time this happened child O2 levels were very low. Advised to bring child to er. Mom is not bringing child to er she will bring child home and give treatment and wait 30 minutes. She said if no relief then she will take to the er. Child while on phone c/o chest hurting. Advised er again. Er f/u booked for tomorrow at mom's request * Telephone Encounter - Cele Minor - 04/24/2013 1:50 PM EDT Signs/Symptoms: Asthma, trouble breathing. Mom states has not given patient treatment yet. Duration of symptoms: Today Temperature: N/A Allergies: Review of patient's allergies indicates no known allergies. Any chronic illnesses: Patient Active Problem List Diagnosis Code ??? otitis media 382.00 ??? Asthma 493.90 ??? ADHD (attention deficit hyperactivity disorder) 314.01 ??? Sleep Disorder 780.50 ??? Sinusitis 473.9 ??? Anxiety disorder 300.00 ??? Astigmatism 367.20 ??? Low back pain 724.2 Is the child taking any medications: Current Outpatient Prescriptions Medication Sig Dispense Refill ??? levalbuterol (XOPENEX) 0.31 MG/3ML nebulizer solution USE 1 VIAL IN NEBULIZER EVERY 4 HOURS NEEDED FOR WHEEZING 72 mL 1 ??? levalbuterol (XOPENEX HFA) 45 MCG/ACT inhaler Inhale 2 Puffs into the lungs every 4 hours as needed for Wheezing. 1 Inhaler 1 ??? fluticasone (FLOVENT HFA) 220 MCG/ACT inhaler Inhale 2 Puffs into the lungs daily. 1 Inhaler 11 ??? montelukast (SINGULAIR) 5 MG chewable tablet Take 1 Tab by mouth at bedtime. 30 Tab 11 ??? fluocinolone (SYNALAR) 0.025 % ointment Apply sparingly bid to affected areas for no more than 2 weeks 30 g 1 ??? fluoxetine (PROZAC) 10 MG tablet Take 10 mg by mouth daily. ??? Spacer/Aero-Holding Chambers (BREATHERITE RUFINO SPACER ADULT) MISC 1 Device by Does not apply route as needed. use with flovent 1 Each 0 ??? CloNIDine HCl 0.1 MG TABS None Entered documented in this encounter Plan of Treatment Not on file documented as of this encounter Visit Diagnoses Not on filedocumented in this encounter Care Teams Automatic Hemmer Relationship Specialty Start Date End Date Bhavna Conroy MD PCP - General 02 01/14/21 Sherry Kaba MD [address] [place] [address] PCP - General Pediatrics 01/15/21 03/19/22 [place] Lux MD [address] [place] [address] PCP - General Internal Medicine 03/20/22 Al Dominguez MD [address] [place] [address] [place] [address] Specialist Cardiovascular Disease 01/20/21 documented as of this encounter
--- OUTSIDE RECORDS SUMMARY | 2024-10-18 14:07 | XMS_ITS | Encounter Summary ---
Author Organization [facility] Address [address] [place] [address] Care Team Providers Care Open Hearth Melter Name Role Phone Bhavna Conroy MD Primary Care Provider Sherry Coppola MD Primary Care Provider [phone] Al Dominguez MD Unavailable [place] Lux MD Primary Care Provider Reason for Visit * Reason Comments E-prescribe Rx Request Encounter Details Date Type Department Care Team Description 06/07/2014 Refill Pediatrics - [address] [address] Bhavna Conroy MD E-prescribe Rx Request Social History Tobacco Use Types Packs/Day Years [...] encounter Miscellaneous Notes * Telephone Encounter - Bhavna Conroy MD - 06/08/2014 12:04 PM EDT I will have BSRs book July * Telephone Encounter - Krissy Newby - 06/08/2014 11:28 AM EDT When was patients last PE/WCC? 07/13/13 When is patients next PE/WCC scheduled? w.list Bhavna Conroy RX REQUEST WHEN MED IS ON THE LIST: All of the medications requested were on the CURRENT MEDS list Did you check the Pharmacy information above?: YES Indicate how soon the patient needs the script: OK FOR NEXT DAY Patient would like script to be: E-PRESCRIBED/FAXED TO PHARMACY Is the doctor here today?: YES Can the message wait until the doctor returns?: YES Has the patient been told that the prescription will not be filled until the end of the day? NO Bhavna Conroy Payor: [employer] [place] / Plan: RACTIV $20 [place] [id number] / Product Type: HMO [id number] documented in this encounter Plan of Treatment Not on file documented as of this encounter Visit Diagnoses Not on filedocumented in this encounter Care Teams Open Hearth Melter Relationship Specialty Start Date End Date Bhavna Conroy MD PCP - General 02 01/14/21 Sherry Kaba MD [address] [place] [address] PCP - General Pediatrics 01/15/21 03/19/22 [place] Lux MD [address] [place] [address] PCP - General Internal Medicine 03/20/22 Al Dominguez MD [address] [place] [address] [address] [place] [address] Specialist Cardiovascular Disease 01/20/21 documented as of this encounter
--- OUTSIDE RECORDS SUMMARY | 2024-10-18 14:07 | XMS_ITS | Encounter Summary ---
Author Organization [facility] Address [address] [place] [address] Care Team Providers Care Network Engineering Advisor Name Role Phone Sherry Kaba MD Primary Care Provider Al Dominguez MD Unavailable [phone] [place] Lux MD Primary Care Provider Encounter Details Date Type Department Care Team Description 04/14/2021 Offset Assistant Press Operator Report Medical Records [address] [place] [address] Kashif Ko Social History Tobacco Use Types [...] on filedocumented in this encounter Care Teams Network Engineering Advisor Relationship Specialty Start Date End Date Sherry Kaba MD [address] [place] [address] PCP - General Pediatrics 01/15/21 03/19/22 [place] Lux MD [address] [place] [address] [id number] PCP - General Internal Medicine 03/20/22 Al Dominguez MD [address] [place] [address] [place] [address] Specialist Cardiovascular Disease 01/20/21 documented as of this encounter
--- OUTSIDE RECORDS SUMMARY | 2024-10-18 14:07 | XMS_ITS | Encounter Summary ---
Author Organization [facility] Address [address] [place] [address] Care Team Providers Care Dike Supervisor Name Role Phone Bhavna Conroy MD Primary Care Provider Deidra Sherry Foster MD Primary Care Provider [phone] Al Dominguez MD Unavailable [phone] [place] MD Primary Care Provider Encounter Details Date Type Department Care Team Description 09/05/2017 Release of Information Medical Records [address] [place] [address] Abstract, Provider Social History Tobacco Use Types [...] on filedocumented in this encounter Care Teams Dike Supervisor Relationship Specialty Start Date End Date Bhavna Conroy MD PCP - General 02 01/14/21 Sherry Kaba MD [address] [place] [address] PCP - General Pediatrics 01/15/21 03/19/22 [place] Lux MD [address] [place] [address] PCP - General Internal Medicine 03/20/22 Al Dominguez MD [address] [place] [address] [place] [address] Specialist Cardiovascular Disease 01/20/21 documented as of this encounter
--- OUTSIDE RECORDS SUMMARY | 2024-10-18 14:07 | XMS_ITS | Encounter Summary ---
Author Organization [facility] Address [address] [place] [address] Care Team Providers Care Supervisor Mixing Name Role Phone Bhavna Conroy MD Primary Care Provider Sherry Coppola MD Primary Care Provider Al Dominguez MD Unavailable [phone] [place] MD Primary Care Provider Encounter Details Date Type Department Care Team Description 03/29/2011 Telephone Pediatrics Urgent Care [address] [place] [address] Bhavna Conroy MD Social History Tobacco Use Types Packs/Day Years Used Date Smoking Tobacco: Never Smokeless Tobacco: Never Comments:mom smokes outside Alcohol Use Standard Drinks/Week Comments Not Asked 0 (1 standard drink = 0.6 oz [...] encounter Miscellaneous Notes * Telephone Encounter - Lilia Boucher - 03/29/2011 2:22 PM EST Symptoms patient is presenting: lower back pain, stomach hurts, low grade fever How long has patient had these symptoms?: 2 weeks back pain / today PCP: Bhavna Conroy MD Payor: [facility] Plan: HMO $35 [place] [id number] Product Type: HMO [id number] documented in this encounter Plan of Treatment Not on file documented as of this encounter Visit Diagnoses Not on filedocumented in this encounter Care Teams Supervisor Mixing Relationship Specialty Start Date End Date Bhavna Conroy MD PCP - General 02 01/14/21 Sherry Kaba MD [address] [place] [address] PCP - General Pediatrics 01/15/21 03/19/22 [place] Lux MD [address] [place] [address] PCP - General Internal Medicine 03/20/22 Al Dominguez MD [address] [place] [address] [place] [address] Specialist Cardiovascular Disease 01/20/21 documented as of this encounter
--- OUTSIDE RECORDS SUMMARY | 2024-10-18 14:08 | XMS_ITS | Encounter Summary ---
Author Organization [facility] Address [address] [place] [address] Care Team Providers Care Schedule Announcer Name Role Phone Bhavna Conroy MD Primary Care Provider Deidra Sherry Foster MD Primary Care Provider [phone] Al Dominguez MD Unavailable [phone] [place] MD Primary Care Provider Encounter Details Date Type Department Care Team Description 12/19/2009 Front Desk Receptionist Report Medical Records [address] [place] [address] Joshua Brandt Social History Tobacco Use Types Packs/Day Years Used Date Smoking Tobacco: Former Comments:mom quit smoking Alcohol Use Standard Drinks/Week Comments Not Asked [...] on filedocumented in this encounter Care Teams Schedule Announcer Relationship Specialty Start Date End Date Bhavna Conroy MD PCP - General 02 01/14/21 Sherry Kaba MD [address] [place] [address] PCP - General Pediatrics 01/15/21 03/19/22 [place] Lux MD [address] [place] [address] PCP - General Internal Medicine 03/20/22 Al Dominguez MD [address] [place] [address] [address] [place] [address] Specialist Cardiovascular Disease 01/20/21 documented as of this encounter
--- OUTSIDE RECORDS SUMMARY | 2024-10-18 14:08 | XMS_ITS | Encounter Summary ---
Author Organization [facility] Address [address] [place] [address] Care Team Providers Care Sand Mill Operator Core Sand Name Role Phone Sherry Kaba MD Primary Care Provider [phone] Al Dominguez MD Unavailable [phone] Austin Lux MD Primary Care Provider Reason for Visit * Reason Onset Date Comments refill request 08/12/2021 Encounter Details Date Type Department Care Team Description 08/12/2021 Refill Pediatrics - [address] [address] Sherry Kaba MD [address] [place] [address] [phone] refill request Social History Tobacco Use Types Packs/Day Years [...] encounter Miscellaneous Notes * Telephone Encounter - Sherry Kaba MD - 08/12/2021 2:36 PM EDT Renewed by scar already * Telephone Encounter - Aleksandra Verde - 08/12/2021 9:52 AM EDT When was patients last PE/WCC? 01/10/20 When is patients next PE/WCC scheduled? Going to adult Sherry Kaba RX REQUEST WHEN MED IS ON THE LIST: All of the medications requested were on the CURRENT MEDS list Did you check the Pharmacy information above?: YES Indicate how soon the patient needs the script: [facility] Patient would like script to be: E-PRESCRIBED/FAXED TO PHARMACY Is the doctor here today?: YES Can the message wait until the doctor returns?: YES Has the patient been told that the prescription will not be filled until the end of the day? NO Sherry Kaba Payor: MARIE / Plan: PPO $0 NESTOR [id number] / Product Type: PPO [id number] documented in this encounter Plan of Treatment Not on file documented as of this encounter Visit Diagnoses Not on filedocumented in this encounter Care Teams Sand Mill Operator Core Sand Relationship Specialty Start Date End Date Sherry Kaba MD [address] [place] [phone] PCP - General Pediatrics 01/15/21 03/19/22 Austin Lux MD [address] [place] [id number] PCP - General Internal Medicine 03/20/22 Al Dominguez MD [address] [place] [address] [address] [place] [address] Specialist Cardiovascular Disease 01/20/21 documented as of this encounter
--- OUTSIDE RECORDS SUMMARY | 2024-10-18 14:08 | XMS_ITS | Clinical Summary ---
Author Organization [facility] Address [address] [place] [address] Phone Care Team Providers Care Associate Professor Of Surgery Name Role Phone Austin Lux MD Primary Care Provider Allergies Active Allergy Reactions Criticality Noted Date Comments Shellfish Containing Products 03/20/2019 Tongue tingling and itching, feels like lips are swollen when he eats shrimp and crawfish. Reactions started at age 17 Medications albuterol HFA (PROAIR HFA ; PROVENTIL HFA ; VENTOLIN HFA) 90 mcg/actuation inhaler Inhale 2 Puffs into the lungs every 4 hours. As needed for cough, wheezing, difficulty breathing May substitute with brand covered by insurance 2 Active budesonide-form oteroL (SYMBICORT) 80-4.5 mcg/actuation inhaler Inhale 2 Puffs into the lungs 2 times daily. And q 4 hours prn 1 Active DULoxetine (CYMBALTA) [address] capsule Take 30 mg by mouth daily. Active EPINEPHrine (EpiPen 2-Emerson) 0.3 mg/0.3 mL injection Inject 1 Device as directed as needed (anaphylaxis). Use as directed 0 Active loratadine (CLARITIN) 10 mg tablet Take 1 tablet by mouth daily for 360 days. 1 Active melatonin 3 mg tablet Take by mouth. Activ e QUEtiapine (SEROquel) 50 mg tablet TK 1 T PO D HS 0 Active inhalational spacing device (Aerochamber MV) inhaler Spacer/Aero-Hol ding Chambers (BREATHERITE RUFINO SPACER ADULT) Misc 1 Device by Does not apply route as needed (cough, wheeze) 7 Active inhalational spacing device (Aerochamber MV) inhaler Spacer/Aero-Hol ding Chambers (BREATHERITE RUFINO SPACER ADULT) Misc 1 Device by Does not apply route as needed (use with flovent). 1 Active Active Problems Problem Noted Date Diagnosed Date Palpitations 01/28/2021 Dizziness 05/15/2020 Overview (01/28/2024): Multiple visits to office and urgent care center 02/28 - 05/29' EKG nl at urgent care center, - labs nl x BUN 28; repeat 23; will try bottle of gatorade daily and recheck Vitamin D insufficiency 04/17/2020 Closed dislocation of right elbow 08/18/2018 Overview (01/28/2024): 08/26 - closed reduction in ER: casted by [facility] Acute torn meniscus of knee, left, initial encou nter 12/14/2017 Overview (01/28/2024): L knee 11/25, ref ortho, seen at [facility] 12/26, had arthroscopic surgery Dr Fernandez 12/27 Overweight 10/04/2017 Overview (01/28/2024): 09/25 09/26 - hgba1c 5.7; recheck in 6 months with weight check. 03/30- weight now nl! Hgb A1C unchanged, GBS 96 -will check bloodwork yearly Major depressive disorder 05/18/2017 Overview (01/28/2024): Psych eval 05/26 09/26 - switched from fluoxetine to lexapro, med provider is Amy Blanchard at [facility]; also has therapist As of 10/28 on seroquel Pes planus 07/27/2014 Overview (01/28/2024): Has arch supports [id number] spots 10/12/2013 Overview (01/28/2024): 1 on chest, one on L knee Low back pain 01/25/2013 Overview (01/28/2024): Low back pain with hyperreflexia 01/20 - xray and labs nl; MRI showed bulging discs L4-L5 and L5-S1; apt at [facility] 01/31/13- MRI read as nl, referred for PT 01/27 - referred again for PT Astigmatism 07/11/2012 Anxiety disorder 09/09/2010 Overview (01/28/2024): Dr Brandt, prozac 10 mg 08/18 09/25 - dose is 30 mg 09/26 - switched to lexapro, med provider Amy Blanchard at [facility] 10/28- on seroquel Sinusitis 04/13/2008 Overview (01/28/2024): 07/16, 02/18, 10/19, 11/20, 12/21 Sleep disorder 04/13/2008 Overview (01/28/2024): Melatonin 04/15, refractory to 9 mg dose 04/16 Clonidine 11/15 09/25 - on melatonin 4 mg and clonidine 0.2 mg 01/27- off clonidine ADHD (attention deficit hyperactivity disorder) 10/06/2007 Overview (01/28/2024): Trial adderall xr 01/14 - 03/18. ref for behav counseling Eval by Dr Brandt at [facility] 11/15, started metadate 01/15, had poor appetite Switched to concerta 10/18 05/19- switched to focalin 10 mg in AM, 10 mg at noon 08/18 - started prozac 10 mg in AM 05/21 - switched back to Concerta 36 mg and 10 mg Methylphenidate in AM 06/21 - concerta 54 mg; prozac 10 mg in AM 05/24 - switched to focalin (Dr Blackman) 30 mg XR Focalin d/c'd 07/27 after leaving school Asthma 05/05/2005 Overview (01/28/2024): steroids about once/year , started Flovent and Singulair 01/12 IgE and RAST neg 01/12, + 07/17 - dust mites, cat, dog, maple pollen orapred 10/14, 12/14, 06/14, 11/14, 04/15, 09/15, 10/16, 11/15, 01/15, 11/16, 12/17, 04/17, 07/18, 02/18, 04/19, 11/19, 12/20; 10/21, 04/21, 11/21 Pulmicort incr to 1.0 ml, singulair incr to 5 mg 11/15 Dr pena 06/16, switched to flovent 880 Winter 2008-2010, used flovent with URIs Restarted daily flovent 12/18 for winter, switched to pulmicort 02/18 06/18- switch to flovent 440 04/19- switch from albuterol to xopenex as rescue med; flare up 11/19 - if has another will restart flovent 10/20 - flovent NOT restarted; continues on singulair 12/20 - flovent restarted after second flare of season Plan to use flovent from October thru June, singulair all year At first sign of URI to start rescue med and triple flovent dose 11/23 - prednsone then restart flovent for football season 09/24 - start flovent 440/day Oct 09 and then rest of season, same 09/25 09/26- no controller meds, no need for albuterol since stopped playing football 04/28 - Urgent Care visit, wheezing, 5 days prednisone, then started on symbicort 05/08/2005/29 - Dr Pena - spirometry very good; restart singulair and continue symbicort BID - TID; recheck one month 06/28 - Dr Pena - onset of R sided chest pain, spirometry looks good; dx of L pectoral strain; long course of systemic steroid (21 days), maintain singulair and symbicort; recheck 4 weeks 07/29 - pectoral strain resolved; conitnue current management; recheck 4 mos 11/28 - Dr Pena -seasonal deterioraton and pectoral strain - prednisone x 14 days; albuterol prn; continue symbicort and singulair; recheck 2 months 01/28 - Dr Pena - spirometry is improved marginally but still shows flow limitation by FEV1/FVC criteria. Plan: Obtain Methacholine Challenge. F/U: post methacholine challenge 03/01 - Dr Pena - significantly positive Methacholine Challenge, seems to be a candidate for biologic. Possibilities given for their own research; Xolair, Nucala, Fasenra, Dupixent. Until then to continue Symbicort and Singulair. F/U to be determined 03/10/21 - Dr Pena - brown/bloody sputum, CXR negative. Sputum culture and T- Spot pending. Discussion about biologics and systemic steroids deferred pending results. 04/29: f/u blood streaked sputum most mornings. Sputum culture positive raising concerns for invasive pulmonary disease. Rec to establish contact with Dr Villa Morales - ID at [facility] for mx. 07/30: s/p ID follow up d/t concerns for ABPA. Does not have ABPA, likely has fungal colonization/sensitivity. Needs more aggressive mx of asthma and steroid tx. Immunizations Name Administration Dates Next Due DTaP (Infanrix) 6wks to less than 7yo ,05/11/2003,2002,06/12,2002 [id number] (Pentacel) 2mo to less than 5yo 05/11/2003,2002,2002,04/11 H1N1 Inj Preservative Free 12/17/2008 HPV 9-valent (Gardisil) 9yo to less than 46yo 10/04/2017,09/24/2016 Hepatitis B Pediatric (Enger ix B; Recombivax HB) to less than 20 yo 2002,2002,2002 IPV Inactivated polio (Ipol) 6wks and older 05/05/2007,2002,2002,04/11 Influenza trivalent, 0.5mL, preservative free (Fluarix; FluLaval; Fluzone) ages 6mo and older (Afluria) 3 years and older 11/23/2019,12/24/2018,11/25/2017,12/03,11/04/2015,10/18/2014,10/12/2013 ,10/27/2012 Influenza trivalent, with pr eservative (Fluzone; Afluria) 6mo and older 11/09/2011,10/21/2010,12/25/2009,11/14,11/08/2006,11/09/2005,12/06/2003 MMR, measles mumps and rubel la Live (Priorix; M-M-R II) 12mo and older 09/14/2006,05/11/2003 Meningococcal MCV4P 10/05/2018,07/13/2013 Pneumococcal Conjugate Vacci ne, 7 Valent 02/07/2003,2002,2002,04/11 Tdap Tetanus diptheria acell ular pertussis (Boostrix; Adacel) 7yo and older 07/13/2013 Varicella live (Varivax) 12m o and older 09/14/2006,02/07/2003 Surgical History Surgery Date Site/Laterality Comments KNEE ARTHROSCOPY W/ MENISCAL REPAIR December 2018 Left PROCEDURE: NV ARTHROSCOPY KNEE W/MENISCUS RPR MEDIAL/LATERAL; COMMENT: torn meniscus 11/25, Dr Fernandez Medical History Medical History Date Comments Esophageal reflux DX:Esophageal reflux; COMMENT: resolved by 9 mos of age Influenza with other manifestations 02/12 DX:Influenza with other manifestations; COMMENT: influenza A Closed anterior dislocation of elbow 06/12 DX:Closed anterior dislocation of elbow; COMMENT: nursemaid's elbow Pneumonia due to other speci fied organism(483.8) 05/13 DX:Pneumonia due to other sp ecified organism(483.8) Salmonella gastroenteritis 10/13 DX:Sa lmonella gastroenteritis; COMMENT: persisitent + cultures after diarrhea resolved Acute sinusitis, unspecified 11/13 DX: Acute sinusitis, unspecified Cellulitis and abscess of face 01/13 D X:Cellulitis and abscess of face; COMMENT: periorbital cellulitis Unspecified asthma(493.90) 04/15 DX:Un specified asthma(493.90); COMMENT: exacerbation: ED visit/ prelone Chalazion 07/15 DX:Chalazion Asthma DX:Asthma ADHD (attention deficit hype ractivity disorder) DX:ADHD (attention deficit hyperactivity disorder) Hip pain, right 04/06/2012 DX:Hip pain, rig ht; COMMENT: 02/20 - xrays and labs nl 03/23 ortho consult, MRI nl Low back pain 01/25/2013 DX:Low back pain ; COMMENT: Low back pain with hyperreflexia 01/20 - xray and labs nl; MRI showed bulging discs L4-L5 and L5-S1; apt at [facility] 01/31/13- MRI read as nl, referred for PT Fracture of metatarsal 07/23 DX:Fractu re of metatarsal; COMMENT: R, fifth Knee pain, right 11/04/2015 DX:Knee pain, r ight; COMMENT: 10/24 - xrays neg, likely patellofemoral syndrome; ref to PT 09/25 - resolved Concussion without loss of consciousness 09/29/2017 DX:Concussion without loss o f consciousness; COMMENT: 11/24 [facility] 05/26 due to worsening of depression after concussion - felt to be secondary to feeling overwhelmed with the return to academic pressures; no restrictions on activity Headache disorder 07/09/2013 DX:Headache di sorder; COMMENT: 11/20, ?migraines 01/17 - no c/o Iron deficiency anemia 09/24/2016 DX:Iron d eficiency anemia; COMMENT: Borderline 09/24, multivit with iron Resolved 09/25 Family History Medical History Relation Name Comments Diabetes Maternal Grandmother Other: allergic rhinitis Maternal Grandmother ADD / ADHD Mother Asthma Mother Hypertension Mother Other: anxiety dis Mother and MGM Other: hyperthyroid Mother Alcohol/Drug Other Relation Name Status Comments Father Alive 1982 elo Maternal Grandmother Mother Alive 1982 Rosalina Other Sister Alive Corine Daly Social History Tobacco Use Types Packs/Day Years Used Date Smoking Tobacco: Former Smokeless Tobacco: Never Alcohol Use Standard Drinks/Week Comments Yes 0 (1 standard drink = 0.6 oz pur e alcohol) Sex and Gender Information Value Date Recorded Sex Assigned at Not on file Legal Sex Male 3:32 PM EST Gender Identity Not on file Sexual Orientation Not on file Obstetrics History Plan of Treatment Upcoming Encounters Date Type Department Care Team ([facility] st Contact Info) Description 12/19/2024 9:15 AM EST Office Visit Internal Medicine - [address] [place] [address] Gavin Barriga MD [address] [place] [phone] Health Maintenance Due Date Last Done Comments Pneumococcal Vaccine: Pediatrics (0 to 5 Years) and At-Risk Patients (6 to 49 Years) (1 of 1 - PPSV23) 02/05/2008 02/07/2003, 2002, 2002, Additional history exists Meningococcal B Vaccine (1 of 2 - Standard) 2018 Hepatitis C Screening 01/07/2022 Social Influencers of Health Screening 01/07/2022 DTaP,Tdap,and Td Vaccines (7 - Td or Tdap) 07/14/2023 07/13/2013, 05/05/2007, 05/11/2003, Additional history exists Depression Screening 02/09/2024 COVID-19 Vaccine ( season) 2024 06/11/2020, 05/13/2020 Influenza Vaccine (#1) 2024 , 12/24/2018, 11/25/2017, Additional history exists Hepatitis B Vaccines Completed 2002, 2002, 2002 HIB Vaccines Completed 05/11/2003, 04/2002, 2002, Additional history exists MMR Vaccines Completed 09/14/2006, 05/11/2003 Varicella Vaccines Completed 09/14/2006, 02/07/2003 IPV Vaccines Completed 05/05/2007, 03/2003, 2002, Additional history exists HPV Vaccines Completed 10/04/2017, 09/24/2016 Meningococcal ACWY Vaccine Completed 10/05/2018, HIV Screening Completed 01/10/2020 Hepatitis A Vaccines Aged Out No long er eligible based on patient's age to complete this topic RSV Immunization Patients Under 20 months Aged Out No longer eligible based on patient's age to complete this topic Procedures Procedure Name Priority Date/Time Associated Diagnosis Comments HIV SCREENING Routine 01/10/2020 from Last 3 Months or Most Recently Relevant to Health Maintenance Results * HIV Screening (01/10/2020) HIV Screening abstracted Historical Provider MD HEALTH MAINTENANCE Final Result from Last 3 Months or Most Recently Relevant to Health Maintenance Insurance [facility] Care Teams Associate Professor Of Surgery Relationship Specialty Start Date End Date Austin Lux MD [address] [place] [address] PCP - General 03/20/22
--- OUTSIDE RECORDS SUMMARY | 2024-10-18 14:08 | XMS_ITS | Encounter Summary ---
Author Organization [facility] Address [address] [place] [address] Care Team Providers Care Spiral Runner Name Role Phone Bhavna Conroy MD Primary Care Provider Deidra Sherry Foster MD Primary Care Provider [phone] Al Dominguez MD Unavailable [phone] Austin Lux MD Primary Care Provider Encounter Details Date Type Department Care Team Description 11/08/2020 Potato Grader Report Medical Records [address] [place] [phone] Kashif Ko Social History Tobacco Use Types [...] on filedocumented in this encounter Care Teams Spiral Runner Relationship Specialty Start Date End Date Bhavna Conroy MD PCP - General 02 01/14/21 Sherry Kaba MD [address] [place] [address] [phone] PCP - General Pediatrics 01/15/21 03/19/22 Austin Lux MD [address] [place] [phone] PCP - General Internal Medicine 03/20/22 Al Dominguez MD [address] [place] [address] [address] [place] [address] Specialist Cardiovascular Disease 01/20/21 documented as of this encounter
--- OUTSIDE RECORDS SUMMARY | 2024-10-18 14:08 | XMS_ITS | Encounter Summary ---
Author Organization [facility] Address [address] [place] [address] Care Team Providers Care Senior Mainframe Developer Name Role Phone Sherry Kaba MD Primary Care Provider [phone] Al Dominguez MD Unavailable [phone] Austin Lux MD Primary Care Provider Encounter Details Date Type Department Care Team Description 01/29/2021 SCAN Medical Records [address] [place], [place] [id number] [place] [address] Social History Tobacco Use Types Packs/Day Years [...] have Coronavirus / COVID-19? No / Unsure 01/16/2021 11:27 AM EST documented as of this encounter Plan of Treatment Not on file documented as of this encounter Visit Diagnoses Not on filedocumented in this encounter Care Teams Senior Mainframe Developer Relationship Specialty Start Date End Date Sherry Kaba MD [address] [place] [phone] PCP - General Pediatrics 01/15/21 03/19/22 Austin Lux MD [address] [place] [phone] PCP - General Internal Medicine 03/20/22 Al Dominguez MD [address] [place] [address] [place] [address] Specialist Cardiovascular Disease 01/20/21 documented as of this encounter
--- OUTSIDE RECORDS SUMMARY | 2024-10-18 14:08 | XMS_ITS | Clinical Summary ---
Author Organization [facility] Address [address] [place] [address] Care Team Providers Care Business Objects Developer Name Role Phone Al Dominguez MD Unavailable [phone] Austin Lux MD Primary Care Provider Allergies Active Allergy Reactions Severity Noted Date Comments Shellfish Allergy 03/20/2019 Tongue tingling and itching, feels like lips are swollen when he eats shrimp and crawfish. Reactions started at age 17 Medications Medication Sig Dispensed Refills Start Date End Date Status Spacer/Aero-Hold ing Chambers (BREATHERITE RUFINO SPACER ADULT) Misc 1 Device by Does not apply route as needed (cough, wheeze). 1 Each 0 09/24/2016 Active Melatonin 3 MG Tab Take by mouth. 0 Active quetiapine (SEROQUEL) 50 MG tablet TK 1 T PO D HS 0 01/03/2020 Active EPINEPHrine (EPIPEN 2-BASHIR) 0.3 MG/0.3ML Solution Auto-injector Inject 1 Device as directed as needed (anaphylaxis). Use as directed 2 Each 3 01/12/2020 Active Spacer/Aero-Hold ing Chambers (BREATHERITE RUFINO SPACER ADULT) Misc 1 Device by Does not apply route as needed (use with flovent). 1 Each 0 03/12/2020 Active duloxetine (CYMBALTA) 30 MG capsule Take 30 mg by mouth daily. 0 Active budesonide-formo terol (Symbicort) 80-4.5 MCG/ACT inhaler Inhale 2 Puffs into the lungs 2 times daily. And q 4 hours prn 1 Inhaler 2 05/24/2020 Active loratadine (Claritin) 10 MG tablet Take 1 tablet by mouth daily for 360 days. 30 tablet 5 11/06/2020 Active ALBUTEROL SULFATE 108 (90 Base) MCG/ACT Aero Soln Inhale 2 Puffs into the lungs every 4 hours. As needed for cough, wheezing, difficulty breathing May substitute with brand covered by insurance 8.5 g 0 08/12/2021 Active Spacer/Aero-Hold ing Chambers (BREATHERITE RUFINO SPACER ADULT) MISC 1 Device by Does not apply route as needed. use with flovent 1 Each 0 06/16/2010 03/12/2020 Discontinued (reorder) Active Problems Patient Care Coordination No te Formatting of this note is d ifferent from the original. If you or your child's teachers are noticing that Raphael is demonstrating any of the following behaviors on a frequent basis, please share this with his doctor not paying attention daydreaming a lot not being able to fall asleep easily not listening being easily distracted form schoolwork or play forgetting things in constant motion, can't sit still squirming or fidgeting talking too much not being able to play quietly acting and speaking without thinking unable to wait for his turn interrupting others Raphael's Care Goals In order to best manage your child's ADHD it is important to have clear care goals. These goals include: working with the school/teachers, other family members and adults who see the child regularly (coaches, music instructors, etc) to help manage the symptoms of ADHD taking medication as directed by your child's doctor meeting with a therapist regularly if this is part of your treatment plan Your Results and your Goals Your Result/Date of Completion Your Goal/How Often Wt Readings from Last 1 Encounters: 12/28/13 86 lb 12.8 oz (39.372 kg) (46.95%*) * Growth percentiles are based on [facility] 2-20 Years data. Maintain Healthy Weight Your Action Plan Contact me if you experience any barriers to care such as inability to purchase your medication, difficulty getting to your appointments or difficulty understanding your care plan Continue care with Dr Brandt and with your counselor at [facility] Center for Disease Control (www.cdc.gov/ncbddd/adhd/) [place] [employer] (www.aap.org/healthtopics/adhd.cfm) National Resource Center for ADHD (www.tywf9lhgd.org) Children and Adults with Attention Deficit Hyperactivity Disorder (www.constanza.org) [place] [facility] Access [facility] (www.[facility].Decision Curve) This care plan was created in collaboration with Raphael Pastrana on 12/28/2013 Problem Noted Date Palpitations 01/28/2021 Dizziness 05/15/2020 Overview: Multiple visits to office and urgent care center 02/28 - 05/29' EKG nl at urgent care center, - labs nl x BUN 28; repeat 23; will try bottle of gatorade daily and recheck Vitamin D insufficiency 04/17/2020 History of prediabetes 01/11/2020 Overview: 03/30 HgbA1c 5.7 01/27 HgbA1c 5.6 Food allergy 10/05/2018 Overview: 09/26- mouth swelling with seafood; epipen and ref to Allergy, seen by telehealth 05/28, to have sIgE drawn, done 01/27- + to crustaceans and equivocal to mollusks; declined skin testing, epipen prescribed again Closed dislocation of right elbow 2018 Overview: 08/26 - closed reduction in ER: casted by [facility] Acute torn meniscus of knee 12/14/2017 Overview: L knee 11/25, ref ortho, seen at [facility] 12/26, had arthroscopic surgery Dr Fernandez 12/27 Overweight 10/04/2017 Overview: 09/25 09/26 - hgba1c 5.7; recheck in 6 months with weight check. 03/30- weight now nl! Hgb A1C unchanged, GBS 96 -will check bloodwork yearly Major depressive disorder 05/18/2017 Overview: Psych eval 05/26 09/26 - switched from fluoxetine to lexapro, med provider is Amy Blanchard at [facility]; also has therapist As of 10/28 on seroquel Pes planus 07/27/2014 Overview: Has arch supports [id number] spots 10/12/2013 Overview: 1 on chest, one on L knee Low back pain 01/25/2013 Overview: Low back pain with hyperreflexia 01/20 - xray and labs nl; MRI showed bulging discs L4-L5 and L5-S1; apt at [facility] 01/31/13- MRI read as nl, referred for PT 01/27 - referred again for PT Astigmatism 07/11/2012 Anxiety disorder 09/09/2010 Overview: Dr Brandt, prozac 10 mg 08/18 09/25 - dose is 30 mg 09/26 - switched to lexapro, med provider Amy Blanchard at [facility] 10/28- on seroquel Sleep disorder 04/13/2008 Overview: Melatonin 04/15, refractory to 9 mg dose 04/16 Clonidine 11/15 09/25 - on melatonin 4 mg and clonidine 0.2 mg 01/27- off clonidine Sinusitis 04/13/2008 Overview: 07/16, 02/18, 10/19, 11/20, 12/21 ADHD (attention deficit hyperactivity di sorder) 10/06/2007 Overview: Trial adderall xr 01/14 - 03/18. ref for behav counseling Eval by Dr Brandt at [facility] 11/15, started metadate 01/15, had poor appetite [...] d/c'd 07/27 after leaving school Asthma 05/05/2005 Overview: steroids about once/year , started Flovent and [...] with Dr Villa Morales - ID at [facility] for mx. 07/30: s/p ID follow up d/t concerns for ABPA. Does not have ABPA, likely has fungal colonization/sensitivity. Needs more aggressive mx of asthma and steroid tx. Resolved Problems Problem Noted Date Resolved Date Concussion without loss of consciousness 018 01/10/2020 Overview: 11/24 [facility]/26 due to worsening of depression after concussion - felt to be secondary to feeling overwhelmed with the return to academic pressures; no restrictions on activity Iron deficiency anemia 09/24/2016 0 Overview: Borderline 09/24, multivit with iron Resolved 09/25 Knee pain, right 11/04/2015 10/05/2018 Overview: 10/24 - xrays neg, likely patellofemoral syndrome; ref to PT 09/25 - resolved Allergic rhinitis 07/27/2014 10/05/2018 Overview: Loratadine 08/21 09/25 - resolved Headache disorder 07/09/2013 01/10/2020 Overview: 11/20, ?migraines 01/17 - no c/o Low back pain 01/25/2013 07/13/2013 Overview: Low back pain with hyperreflexia 01/20 - xray and labs nl; MRI showed bulging discs L4-L5 and L5-S1; apt at [facility] 01/31/13- MRI read as nl, referred for PT Low back pain 01/25/2013 10/05/2018 Overview: Low back pain with hyperreflexia 01/20 - xray and labs nl; MRI showed bulging discs L4-L5 and L5-S1; apt at [facility] 01/31/13- MRI read as nl, referred for PT Referred again for PT 01/21 Resolved as of PE 09/23 Referred again for PT 06/24, eval at [facility] 07/25, met all goals and discharged from care 09/24 09/25 - resolved Hip pain, right 04/06/2012 07/11/2012 Overview: 02/20 - xrays and labs nl 03/23 ortho consult, MRI nl otitis media 05/05/2005 11/22/2019 Overview: 04/10, 10/11, 03/14, 10/12, 04/13, 11/14, 04/15 IMO update Immunizations Name Administration Dates Next Due COVID-19 (Moderna) 06/11/2020,05/13/2020 DTaP 05/05/2007, 4,2002,06/12,2002 Gardasil 9 (Hpv) 10/04/2017,09/24/2016 HIB 05/11/2003, 3,2002,04/11 Hepatitis B-3 Dose (<19yrs) 2002, 3,2002 Influenza (6-35 months) 12/06/2003 Influenza (> 6 Months) 11/09/2011,2010,12/25/2009,11/14,11/08/2006,11/09/2005 Influenza (>6 Months) Split Preservative Free 11/23/2019,12/24/2018,11/25/2017,12/03,11/04/2015,10/18/2014,10/12/2013 ,10/27/2012 Influenza H1N1 Pandemic Flu Vaccine 12/17/2008 MMR (Knrdvyl-Imtqw-Seyeyzi) 09/14/2006, 4 Meningococcal (Menactra) 10/05/2018,07/13/2013 Pneumococcal(Pedi) Conjugate PCV-7 02/07,2002,2002,04/11 Polio (IPV) 05/05/2007, 3,2002,04/11 Tdap 07/13/2013 Varicella 09/14/2006,02/07/2003 Family History Medical History Relation Name Comments Diabetes Maternal Grandmother allergic rhinitis Maternal Grandmother ADHD Mother Asthma Mother Hypertension Mother anxiety dis Mother and MGM hyperthyroid Mother Alcohol and Other Drug Abuse Other Relation Name Status Comments Father Alive 1982 elo Maternal Grandmother Mother Alive 1982 Fozia Other Sister Alive Corine Daly Social History Tobacco Use Types Packs/Day Years Used Date Smoking Tobacco: Former Vapor Smokeless Tobacco: Never Tobacco Cessation:Counseling Given: No Comments:on an off, stopped in 2018 Alcohol [...] Assigned at Date Recorded Not on file Last Filed Vital Signs Vital Sign Reading Time Taken Comments Blood Pressure 110/80 01/16/2021 11:36 AM EST Pulse 100 01/16/2021 11:36 AM EST Temperature 36.2 C (97.1 F) 01/16/2021 11:36 AM EST Respiratory Rate 16 05/08/2020 3:55 PM EDT Oxygen Saturation 98% 01/16/2021 11:36 AM EST Inhaled Oxygen Concentration - - Weight 86.5 kg (190 lb 9.6 oz) 01/16/2021 11:36 AM EST Height 173.1 cm (5' 8.15 ) 01/16/2021 11:[address] Body Mass Index 28.85 01/16/2021 11:36 AM EST Plan of Treatment Health Maintenance Due Date Last Done Comments GONORRHEA & CHLAMYDIA SCREENING 01/09/2021 01/10/2020, 10/05/2018, 10/04/2017 BASELINE HEALTH EXAM 18-39 2021 PNEUMOCOCCAL VACCINE FOR HIG H RISK PATIENTS (#1) 2021 CHOLESTEROL SCREENING 2022 11/25/2017, 017 DTAP/TDAP/TD (7 - Td or Tdap) 07/14/2023, 05/05/2007, 05/11/2003, Additional history exists BMI CHECK/ADVISE 02/09/2024 01/10/2020, 03/2019, 10/05/2018, Additional history exists DEPRESSION SCREENING/FOLLOWUP 02/09/2024, 04/24/2020, 03/12/2020, Additional history exists SOCIAL NEEDS SCREENING 02/09/2024 , 01/10/2020, 10/05/2018 Covid-19 Vaccine (2022-2 4 season) 2024 06/11/2020, 05/13/2020 INFLUENZA (#1) 2024 11/23/2019, 12/09, 11/25/2017, Additional history exists HUMAN PAPILLOMAVIRUS (HPV) Completed 10/04/2017, Insurance Payer Benefit Plan / Group Subscriber ID Effective Dates Phone Address [facility] $20 VENICE 1 [id number] 07/01/2011-Pre sent ONE [address] [address] [facility]ENICE 1 [id number] 07/01/2011-Pre sent [phone] [address] H[facility] VENICE 1 [id number] 07/01/2011-Pre sent ONE [address] [address] O Xfp-bkj-Dylg ice [place] [id number] 04/05/2012-Pre sent [employer] [address] [place] [address] MEDICAID [id number] [place] [id number] 04/16/2020-Pres ent [employer] [address] [place] [address] MEDICAID [id number] [place] [id number] 11/08/2020-Pre sent [employer] [address] [place] [address] MEDICAID [id number] ICE Care Teams Business Objects Developer Relationship Specialty Start Date End Date Austin Lux MD [address] [place] [id number] PCP - General Internal Medicine 03/20/22 Al Dominguez MD [address] [place] [address] [address] [place] [address] Specialist Cardiovascular Disease 01/20/21
--- OUTSIDE RECORDS SUMMARY | 2024-10-18 14:08 | XMS_ITS | Encounter Summary ---
Author Organization [facility] Address [address] [place] [address] Care Team Providers Care Assistant Product Manager Name Role Phone Sherry Kaba MD Primary Care Provider [phone] Al Dominguez MD Unavailable [phone] Austin Lux MD Primary Care Provider Encounter Details Date Type Department Care Team Description 01/29/2021 SCAN Medical Records [address] [place], [place] [id number] [place] [address] Social History Tobacco Use Types Packs/Day Years [...] on filedocumented in this encounter Care Teams Assistant Product Manager Relationship Specialty Start Date End Date Sherry Kaba MD [address] [place] [id number] PCP - General Pediatrics 01/15/21 03/19/22 Austin Lux MD [address] [place] [id number] PCP - General Internal Medicine 03/20/22 Al Dominguez MD [address] [place] [address] [place] [address] Specialist Cardiovascular Disease 01/20/21 documented as of this encounter
--- OUTSIDE RECORDS SUMMARY | 2024-10-18 14:08 | XMS_ITS | Encounter Summary ---
Author Organization [facility] Address [address] [place] [address] Care Team Providers Care Patient Care Nursing Assistant Name Role Phone Bhavna Conroy MD Primary Care Provider Deidra Sherry Foster MD Primary Care Provider [phone] Al Dominguez MD Unavailable [phone] Austin Lux MD Primary Care Provider Encounter Details Date Type Department Care Team Description 09/14/2016 Warehouse Associate Report Medical Records [address] [place] [id number] Social History Tobacco Use Types Packs/Day Years [...] on filedocumented in this encounter Care Teams Patient Care Nursing Assistant Relationship Specialty Start Date End Date Bhavna Conroy MD PCP - General 02 01/14/21 Sherry Kaba MD [address] [place] [id number] PCP - General Pediatrics 01/15/21 03/19/22 Austin Lux MD [address] [place] [address] PCP - General Internal Medicine 03/20/22 Al Dominguez MD [address] [place] [address] [address] [place] [address] Specialist Cardiovascular Disease 01/20/21 documented as of this encounter
[2024-10-18 15:58] VITALS: BP 110/64; PULSE 56; RESP 16; TEMP 36.9; O2SAT 99
== END 2024-10-18 16:00 | disposition home or self-care (01) ==
PROVIDERS: Physician Assistant Medical; Emergency Provider Emergency Medicine
DX: K59.00 Constipation, unspecified (principal); R10.9 Unspecified abdominal pain; M54.9 Dorsalgia, unspecified
CPT/HCPCS: 36415; 74176; 80053; 81001; 83735; 85025; 87086; 96361; 96374; 99284; 99285; J1885

== ENCOUNTER → 2024-10-18 13:26 | Outpatient (BNV) | payer OTHER, SELFPAY | PROVIDERS: Emergency Provider Emergency Medicine; Visit Provider Radiology Diagnostic Radiology | DX: R10.31 Right lower quadrant pain (principal) | CPT/HCPCS: 74176 ==

== ENCOUNTER 2025-01-25 23:29 | Emergency (ER) | payer OTHER, SELFPAY ==
[2025-01-25 23:50] VITALS: BP 129/67; PULSE 72; RESP 20; TEMP 37.1; O2SAT 96; BMI 28.9
[2025-01-26 00:55] LABS: Resp Syncy Virus RNA Qual PCR NEGATIVE (Negative); SARS COV2 PCR INHOUSE NEGATIVE (Negative)
--- OUTSIDE RECORDS SUMMARY | 2025-01-26 01:09 | XMS_ITS | Clinical Summary ---
Author Organization [address] [facility] Address [address] [place] [address] Phone Care Team Providers Care Care Professional Name Role Phone Gavin Barriga MD Primary Care Provider [phone] Allergies Active Allergy Reactions Criticality Noted Date Comments Shellfish Containing Products 03/20/2019 Tongue tingling and itching, feels like lips are swollen when he eats shrimp and crawfish. Reactions started at age 17 Medications budesonide-form oteroL (SYMBICORT) 80-4.5 mcg/actuation inhaler Inhale 2 Puffs into the lungs 2 times daily. And q 4 hours prn 05/24/2020 Active EPINEPHrine (EpiPen 2-Emerson) 0.3 mg/0.3 mL injection Inject 1 Device as directed as needed (anaphylaxis) . Use as directed 01/12/2020 Active melatonin 3 mg tablet Take by mouth. Active cloNIDine (CATAPRES) 0.2 mg tablet Take 1 tablet (0.2 mg total) by mouth at bedtime. 11/16/2024 Active venlafaxine XR (EFFEXOR-XR) 150 mg 24 hr capsule Take 1 capsule (150 mg total) by mouth 1 (one) time each day. 12/06/2024 Active lamoTRIgine (LaMICtal) 25 mg tablet Take 2 tablets (50 mg total) by mouth 2 (two) times a day. 12/06/2024 Active albuterol HFA (PROAIR HFA ; PROVENTIL HFA ; VENTOLIN HFA) 90 mcg/actuation inhaler Inhale 2 puffs by mouth every 4 (four) hours if needed for wheezing. 18 g 8 12/19/2024 12/20/19 26 Active Active Problems Problem Noted Date Diagnosed [...] - closed reduction in ER: casted by [facility] Acute torn meniscus of knee, left, initial encou nter 12/14/2017 Overview (01/28/2024): L knee 11/25, ref ortho, seen at [facility] 12/26, had arthroscopic surgery Dr Fernandez 12/27 Overweight 10/04/2017 Overview (01/28/2024): 09/25 09/26 - hgba1c 5.7; recheck in 6 months with weight check. 03/30- weight now nl! Hgb A1C unchanged, GBS 96 -will check bloodwork yearly Major depressive disorder 05/18/2017 Overview (01/28/2024): Psych eval 05/26 09/26 - switched from fluoxetine to lexapro, med provider is Amy Blanchard at [facility]; also has therapist As of 10/28 on seroquel Pes planus 07/27/2014 Overview (01/28/2024): Has arch supports [id number]-[id number] spots 10/12/2013 Overview (01/28/2024): 1 on chest, one on L knee Low back pain 01/25/2013 Overview (01/28/2024): Low back pain with hyperreflexia 01/20 - xray and labs nl; MRI showed bulging discs L4-L5 and L5-S1; apt at [facility] 01/31/13- MRI read as nl, referred for PT 01/27 - referred again for PT Astigmatism 07/11/2012 Anxiety disorder 09/09/2010 Overview (01/28/2024): Dr Brandt, prozac 10 mg 08/18 09/25 - dose is 30 mg 09/26 - switched to lexapro, med provider Amy Blanchard at [facility] 10/28- on seroquel Sinusitis 04/13/2008 Overview (01/28/2024): 07/16, 02/18, 10/19, 11/20, 12/21 Sleep disorder 04/13/2008 Overview (01/28/2024): Melatonin 04/15, refractory to 9 mg dose 04/16 Clonidine 11/15 09/25 - on melatonin 4 mg and clonidine 0.2 mg 01/27- off clonidine ADHD (attention deficit hyperactivity disorder) 10/06/2007 Overview (01/28/2024): Trial adderall xr 01/14 - 03/18. ref for behav counseling Eval by Dr Brandt at [facility] 11/15, started metadate 01/15, had poor [...] F/U to be determined 03/10/21 - Dr Maikel de los santos/bloody sputum, CXR negative. Sputum culture and T- Spot pending. Discussion about biologics and systemic steroids deferred pending results. 04/29: f/u blood streaked sputum most mornings. Sputum culture positive raising concerns for invasive pulmonary disease. Rec to establish contact with Dr Villa Morales - ID at [facility] for mx. 07/30: s/p ID follow up d/t concerns for ABPA. Does not have ABPA, likely has fungal colonization/sensitivity. Needs more aggressive mx of asthma and steroid tx. Encounters Date Type Department Care Team Description 12/19/2024 9:15 AM EST Office Visit Internal Medicine - [address] [place] [address] Gavin Barriga MD Adult general medical examination (Primary Dx); Other fatigue; Encounter for lipid screening for cardiovascular disease; Other abnormal glucose; Vitamin D deficiency; Attention deficit hyperactivity disorder (ADHD), unspecified ADHD type; Anxiety disorder, unspecified type; Major depressive disorder, remission status unspecified, unspecified whether recurrent; Sleep disorder; Asthma, unspecified asthma severity, unspecified whether complicated, unspecified whether persistent; Chronic midline low back pain without sciatica from Last 3 Months Immunizations Immunization Administration Dates Next Due DTaP (Infanrix) 6wks to less than 7yo ,05/11/2003,2002,06/12,2002 [id number] (Pentacel) 2mo to less than 5yo 05/11/2003,2002,2002,04/11 [...] W/ MENISCAL REPAIR December 2018 Left PROCEDURE: MO ARTHROSCOPY KNEE W/MENISCUS RPR MEDIAL/LATERAL; COMMENT: torn [...] bulging discs L4-L5 and L5-S1; apt at [facility] 01/31/13- MRI read as nl, referred [...] Family History Medical History Relation Name Comments Alcohol abuse Maternal Grandfather COPD Maternal Grandfather Drug abuse Maternal Grandfather Kidney disease Maternal Grandfather Liver disease Maternal Grandfather SMOKER Maternal Grandfather Diabetes Maternal Grandmother Other: allergic rhinitis Maternal Grandmother Thyroid cancer Maternal Grandmother ADD / ADHD Mother Asthma Mother Hypertension Mother Other: anxiety dis Mother and MGM Other: hyperthyroid Mother Alcohol/Drug Other Asthma Paternal Grandmother Diabetes type II Paternal Grandmother Relation Name Status Comments Father Alive 1982 elo Maternal Grandfather Maternal Grandmother Alive Mother Alive 1982 Rosalina Other Paternal Grandfather Unknown Paternal Grandmother Alive Sister Alive Corine Daly Social History Tobacco Use Types Packs/Day Years Used Date Smoking Tobacco: Former Smokeless Tobacco: Never Alcohol Use Standard Drinks/Week Comments Yes 0 (1 standard drink = 0.6 oz pur e alcohol) occ Housing Instability Answer Date Recorde d Are you worried that in the next 2 months you may not have stable housing? No 12/19/2024 Food Access & Nutrition Answer Date Rec orded Do you have access to a vari ety of food including fruits and vegetables? No 12/19/2024 Health Literacy Answer Date Recorded How often do you need to hav e someone help you when you read instructions, pamphlets, or other written material from your doctor or pharmacy? Never 12/19/2024 Caregiver: How often do you need to have someone help you when you read instructions, pamphlets, or other written material from your doctor or pharmacy? Not on file 12/19/2024 Financial Risk Answer Date Recorded How hard is it for you to pa y for the very basics like food, housing, medical care, and air conditioning / heating? Not very hard 12/19/2024 Transportation Answer Date Recorded Has the lack of transportati on kept you from meetings, work, or from getting things needed for daily living? No Has the lack of transportati on kept you from medical appointments or from getting medications? No 12/19/2024 Social Isolation Answer Date Recorded How often do you feel lonely or isolated from th ose around you? Never 12/19/2024 Food Risk Answer Date Recorded Within the past 12 months we worried whether our food would run out before we got money to buy more. Never true 12/19/2024 Within the past 12 months th e food we bought just didn't last and we didn't have money to get more. Never true 12/19/2024 Dependent Care Answer Date Recorded Do you need help finding or paying for care for your loved ones. For example, summer child caregiver or elderly care for an older adult? No 12/19/2024 Education Answer Date Recorded Do you think completing more education or training, like finishing a GED, going to college, or learning a trade, would be helpful for you? No 12/19/2024 Employment and Income Answer Date Recor ded During the last four weeks, have you been actively looking for work? No 12/19/2024 Living Situation Answer Date Recorded What is your living situation? Unrecognized valu e 12/19/2024 Education Answer Date Recorded What is the highest level of school you have completed or the highest degree you have received? 10th grade 12/19/2024 Sex and Gender Information Value Date Recorded Sex Assigned at Male 12/22/2024 5:11 PM EST Legal Sex Male 3:32 PM EST Gender Identity Male 12/22/2024 5:11 PM EST Sexual Orientation Not on file Last Filed Vital Signs Vital Sign Reading Time Taken Comments Blood Pressure 130/84 12/19/2024 9:15 AM EST Pulse 66 12/19/2024 9:10 AM EST Temperature 36.3 C (97.3 F) 12/19/2024 9:10 AM EST Respiratory Rate - - Oxygen Saturation 99% 12/19/2024 9:10 AM EST Inhaled Oxygen Concentration - - Weight 86.2 kg (190 lb) 12/19/2024 9:10 AM EST Height - - Body Mass Index - - Plan of Treatment Upcoming Encounters Date Type Department Care Team ([facility] st Contact Info) Description 06/20/2025 11:15 AM EDT Office Visit Internal Medicine - [address] [place] [phone] Gavin Barriga MD [address] [place] [phone] Health Maintenance Due Date Last Done Comments Pneumococcal Vaccine: Pediatrics (0 to 5 Years) and At-Risk Patients (6 to 49 Years) (1 of 1 - PPSV23, PCV20, or PCV21) 02/05/2008 02/07/2003, 2002, 2002, Additional history exists Meningococcal B Vaccine (1 of 2 - Standard) 2018 Hepatitis C Screening 01/07/2022 DTaP,Tdap,and Td Vaccines (7 - Td or Tdap) 07/14/2023 07/13/2013, 05/05/2007, 05/11/2003, Additional history exists COVID-19 Vaccine (3 - season) 2024 06/11/2020, 05/13/2020 Influenza Vaccine (#1) 2024 , 12/24/2018, 11/25/2017, Additional history exists Social Influencers of Health Screening 12/19/2025 12/19/2024 RSV Immunization Adult Patients (1 - 1-dose 75+ series) 2077 Hepatitis B Vaccines Completed 2002, 2002, 2002 HIB Vaccines Completed 05/11/2003, 03/2003, 2002, Additional history exists MMR Vaccines Completed 09/14/2006, 05/11/2003 Varicella Vaccines Completed 09/14/2006, 02/07/2003 IPV Vaccines Completed 05/05/2007, 03/2003, 2002, Additional history exists HPV Vaccines Completed 10/04/2017, 09/24/2016 Meningococcal ACWY Vaccine Completed 10/05/2018, HIV Screening Completed 01/10/2020 Depression Screening Completed 12/19/2024 Hepatitis A Vaccines Aged Out No long [...] Health Maintenance Results * HIV Screening (01/10/2020) [facility] HIV Screening abstracted Historical Provider MD HEALTH MAINTENANCE Final Result from Last 3 Months or Most Recently Relevant to Health Maintenance Insurance [employer] Care Teams Care Professional Relationship Specialty Start Date End Date Gavin Barriga MD [address] [place] [phone] PCP - General Internal Medicine 12/19/24
[2025-01-26 02:10] VITALS: BP 121/80; PULSE 65; RESP 18; TEMP 36.8; O2SAT 97
--- NOTE | 2025-01-26 03:25 | ED.URI ---
HPI - URI/Sore Throat General Chief Complaint: Upper Respiratory Symptoms Stated Complaint: Flu Symptoms Time Seen by Provider: 01/26/25 03:07 Source: patient Mode of arrival: ambulatory Limitations: no limitations History of Present Illness ED Provider: Dr. Chen Garcia HPI Narrative: patient has a the emergency room complaining of congestion for 2 weeks, frequent asthma exacerbations. Patient's significant other tested positive for influenza A. At this time, patient denies wheezing or shortness of breath. Patient complaining of ongoing nasal congestion. Related Data Previous Rx's ?Medication ?Instructions ?Recorded cephalexin 500 mg capsule 500 mg PO QID #28 caps 12/10/23 prednisone 50 mg tablet 50 mg PO DAILY #5 tabs 01/26/25 Allergies Allergy/AdvReac Type Severity Reaction Status Date / Time No Known Allergies Allergy Verified 01/25/25 23:51 Review of Systems Review of Systems: Constitutional : No Weight loss, No Fever, No Chills, No Night Sweats, No Fatigue, No Malaise ENT/Mouth : No Hearing loss, No Ear Pain, Complaining of Nasal Congestion, No Sinus Pain, No Hoarseness, No sore throat, No Rhinorrhea, No Swallowing Difficulty Eyes: No Eye Pain, No Swelling, No Redness, No Foreign Body, No Discharge, No Vision Changes Cardiovascular : No Chest Pain, No SOB, No Dyspnea on Exertion, No Orthopnea, No Edema, No Palpitations Respiratory : No Cough, No Sputum, complaining of Wheezing, No Smoke Exposure, No Dyspnea Gastrointestinal : No Nausea, No Vomiting, No Diarrhea, No Constipation, No abdominal Pain, No Hematochezia, No Melena Genitourinary : no irregular bleeding, No Dysuria, No Urinary Frequency, No Hematuria, No Urinary Incontinence, No Urgency, No Flank Pain, No Urinary Flow Changes, No Hesitancy Musculoskeletal : No joint pain, No Myalgias, No Joint Swelling Skin : No Skin Lesions, No rash Neuro : No Weakness, No Numbness, No Paresthesias, No Loss of Consciousness, No Dizziness, No Headache Psych : No Anxiety/Panic, No Depression, No SI/HI/AH/VH, No Social Issues, Heme/Lymph: No Bruising, No Bleeding,No Lymphadenopathy Endocrine : No Polyuria, No Polydipsia, No Temperature Intolerance [facility] Past Medical History Medical History (Updated 01/26/25 @ 03:27 by Chen Garcia MD) Asthma Social History Social History Alcohol intake: current Alcohol intake frequency: holidays/special occasions only Alcohol type: hard liquor Substance Use Type: Marijuana Advance Directives: No Advance Directives Information Provided: No Physical Exam Exam: Exam: Appearance: Alert. Oriented X3. No acute distress. Eyes: Pupils equal, round and reactive to light. ENT: Pharynx normal. nasal congestion Neck: Normal inspection. Neck supple. No lymph nodes noted. No crepitus CVS: Normal heart rate and rhythm. Pulses normal. Normal S1 and S2 Respiratory: No respiratory distress. Breath sounds normal. No Wheezing. No rales Abdomen: Soft and nontender. No rigidity. No distention. Skin: Skin warm and dry. Normal skin color. Normal skin turgor. Extremities: No lower extremity edema. No Lacerations. No Rash Neuro: Oriented X 3. No motor deficit. No sensory deficit. Moving all extremities. No slurred speech. CN 2 through 12 grossly intact Psych: calm, cooperative, normal affect Vital Signs: Vital Signs: Last Vital Signs Temp 98.3 F 01/26/25 02:10 Pulse 65 01/26/25 02:10 Resp 18 01/26/25 02:10 BP 121/80 01/26/25 02:10 Pulse Ox 97 01/26/25 02:10 O2 Del Method Room Air 01/26/25 02:10 BMI result Body Mass Index 28.9 Medical Decision Making Medical Decision Making MDM Narrative: patient tested negative for influenza a, influenza B RSV and COVID patient states that he has enough albuterol at home. Since patient has been having frequent exacerbations at home, prednisone will be sent to the pharmacy, patient agrees with plan Lab Data Labs: Lab Results 01/26/25 Range/Units 00:07 Influenza Type A (PCR) NEGATIVE (Negative) Influenza Type B (PCR) NEGATIVE (Negative) RSV RNA Qual (PCR) NEGATIVE (Negative) SARS-CoV-2 RNA (RT-PCR) NEGATIVE (Negative) Discharge Plan Discharge Clinical Impression: Viral URI Patient Disposition: Home, Self-Care Instructions: Upper Respiratory Infection (ED) Additional Instructions: Please follow-up with your primary care physician tomorrow. If you have any worsening or new symptoms, please return to the emergency room or call 911 Prescriptions: New prednisone 50 mg tablet 50 mg PO DAILY Qty: 5 0RF No Action cephalexin 500 mg capsule 500 mg PO QID Qty: 28 0RF Stand Alone Forms: Work/School Release Print Language: Swazi
[2025-01-26 03:49] VITALS: BP 137/88; PULSE 65; RESP 14; TEMP 36.4; O2SAT 98
== END 2025-01-26 03:51 | disposition home or self-care (01) ==
PROVIDERS: Emergency Provider Emergency Medicine
DX: J06.9 Acute upper respiratory infection, unspecified (principal); R09.81 Nasal congestion; Z03.818 Encounter for observation for suspected exposure to other biological agents ruled out
CPT/HCPCS: 87637; 99283